=== PATIENT | male | born 1945 | race Caucasian/White ===

== ENCOUNTER → 2018-01-12 08:44 | Outpatient (CLI) | payer MEDICARE, OTHER, SELFPAY ==
--- NOTE | 2018-01-12 | DI.US.S_ITS ---
PROCEDURE: US ABD AORTA ANEURYSM SCREEN INDICATIONS: SCREENING TECHNIQUE: Real time scanning was performed of the aorta and iliac arteries, with image documentation. COMPARISON: [facility], CT, THORAX WITH CONTRAST, 07/18/2009, 11:17. FINDINGS: Aorta: Proximal aortic diameter measures 1.9 cm. Mid-aorta measures 1.9 cm. Distal aortic diameter is 1.5 cm. Iliac arteries: Right common iliac artery measures 1.0 cm. Left common iliac artery measures 1.0 cm. IMPRESSION: No abdominal aortic aneurysm. Dictated by: Bharath Silverio M.D. on 01/12/2018 at 10:10 Approved by: Bharath Silverio M.D. on 01/12/2018 at 10:12
== END ==
PROVIDERS: PCP Family Medicine; Visit Provider Family Medicine
DX: Z13.6 Encounter for screening for cardiovascular disorders (principal)
CPT/HCPCS: 76706

== ENCOUNTER 2018-01-27 13:57 | Outpatient (RCR) | payer MEDICARE, OTHER, SELFPAY ==
--- NOTE | 2018-01-30 14:56 | PT.OIE ---
Current Diagnoses Pain in left shoulder (01/27/18) Bicipital tendinitis, left shoulder (01/27/18) Provider Visit Care Team Role Provider Type Scotty Caceres MD Attending Provider Physician Primary Care Provider Specialty: [facility][1] Address: [place], [address] Email: [email or web address] Physical Therapy Initial Evaluation PT-OP-A Visit Information Start: 01/30/18 14:34 Freq: Status: Active Protocol: Document 01/27/18 14:30 DCW (Rec: 01/30/18 14:56 DCW [id number]) Out-Patient Physical Therapy Visit Information Visit Information Visit Type Initial Evaluation Visit Start Time 14:30 Visit Stop Time 15:10 Total Visit Minutes 40 Visit Number 1 Number of TRANSPORTATION OFFICER Visits 0 Evaluation Information Evaluation Date 01/27/18 PT-OP-B Current Condition Start: 01/30/18 14:34 Freq: Status: Active Protocol: Document 01/27/18 14:30 DCW (Rec: 01/30/18 14:56 DCW [id number]) Current Condition History of Current Condition Onset Date s/p 3 weeks Current Complaints Anterior shoulder pain History of Current Condition Pt is a 72 year old male presenting with a three week history of left shoulder pain. Pt reports that when it began , he saw his PCP, was diagnosed with Bicipital Tendonitis, and has been taking Meloxicam and babying it, which has helped it improve substantially from his initial pain. Pt does note some continued mild tenderness at the site of his bicipital groove, and has already been performing cross-friction massage and gentle shoulder strengthening. When his pain initially began, he was experiencing tingling into his upper arm when sleeping on his left side, which had never occurred previously, however that has also been happening much less frequently. Treatment Goals Patient/Caregiver Goals I want it to keep getting better. Prior Functional Status Baseline Function- ADL's Independent Baseline Function- Mobility Independent Current Functional Impairments (Reported) Functional Limitations- ADL's No current restrictions PT-OP-C Subjective Start: 01/30/18 14:34 Freq: Status: Active Protocol: Document 01/27/18 14:30 DCW (Rec: 01/30/18 14:56 DCW [id number]) Patient Questionnaires Quick Dash- Upper Extremity Quick Dash UE Score 9.09% Quick Dash UE Impairment 1 to 19% Impaired (Score 1-19) OP-PT Pain Assessment Pain Assessment Grid Paper Pain Assessment Grid Completed Yes Location Left Upper Arm Intensity 3 Scale Used Numeric (1 - 10) PT-OP-E Functional Tests Start: 01/30/18 14:34 Freq: Status: Active Protocol: Document 01/27/18 14:30 DCW (Rec: 01/30/18 14:56 [id number] Functional Tests Apley's Scratch Test Action 1: The subject is instructed to touch the opposite shoulder with his/her hand. This motion checks Glenohumeral adduction, internal rotation , horizontal adduction and scapular protraction Action 2: The subject is instructed to place his/her arm overhead and reach behind the neck to touch his/her upper back. This motion checks Glenohumeral abduction, external rotation and scapular upward rotation and elevation. Action 3: The subject puts his/her hand on the lower back and reaches upward as far as possible. This motion checks glenohumeral adduction, internal rotation and scapular retraction with downward rotation Action 1- Left WNL Action 1- Right WNL Action 2- Left WNL Action 2- Right WNL Action 3- Left WNL Action 3- Right WNL PT-OP-K Range of Motion Start: 01/30/18 14:34 Freq: Status: Active Protocol: Document 01/27/18 14:30 DCW (Rec: 01/30/18 14:56 [facility] [id number]) Shoulder Goniometric Range of Motion Shoulder Measured in Degrees Right Shoulder ROM WFL Yes Left Shoulder ROM WFL Yes Elbow/Forearm Range of Motion Elbow/Forearm Measured in Degrees Right Elbow/Forearm ROM WFL Yes Left Elbow/Forearm ROM WFL Yes PT-OP-L Special Tests Start: 01/30/18 14:34 Freq: Status: Active Protocol: Document 01/27/18 14:30 DCW (Rec: 01/30/18 14:56 [facility] [id number]) Special Tests Shoulder Special Tests Yergason's Biceps Test Results Positive - pain at bicipital groove Speed's Biceps Test Results Negative Passive ER Rotator Cuff Test Results Negative Lift-Off Rotator Cuff Test Results Negative Empty Can Test Results Negative Biceps Load II Test Test Results Mild c/o pain Drop Arm Rotator Cuff Test Results Negative Belly Press Test Results Negative PT-OP-M Strength Start: 01/30/18 14:34 Freq: Status: Active Protocol: Document 01/27/18 14:30 DCW (Rec: 01/30/18 14:56 DCW [id number]) Shoulder Strength Shoulder Manual Muscle Testing Right Reason Not Measured WFL Left Flexion 4+ Good+ Extension 5 Normal Abduction (C5) 5 Normal Adduction 5 Normal External Rotation 5 Normal Internal Rotation 5 Normal Elbow/Forearm Strength Elbow and Forearm Manual Muscle Testing Right Reason Not Measured WFL Left Flexion (C6) 4+ Good+ Extension (C7) 5 Normal PT-OP-T Assessment and Plan Start: 01/30/18 14:34 Freq: Status: Active Protocol: Document 01/27/18 14:30 DCW (Rec: 01/30/18 14:56 DCW [id number]) Physical Therapy Assessment Rehab Potential Rehabilitation Potential Excellent Evaluation Complexity Number of Personal Factors/Comorbidities 0 Number of Body Systems Impaired 1-2 Clinical Presentation at Evaluation Stable Impairments Impairments Pain Strength Goals Two Impairment Special Tests Short Term Goal (STG) Yergason's Test/Biceps Load Test - testing to be negative One Impairment QuickDASH score Short Term Goal (STG) Pt to score a 0% on QuickDASH STG Duration 02/17/18 Assessment Summary Assessment Pt presents with signs and symptoms of Bicipital Tendonitis. Pt is already doing very well, is performing appropriate home exercises and STM, and currently has no real need for further skilled PT. Pt has no functional deficits, and has made great improvement on his own. Pt should be scheduled for a follow-up visit in two week for advancement of HEP in case he has plateaued in his progress, however if he continues to be improving, pt was instructed to cancel his appointment, and will be discharged from therapy at that time. Physical Therapy Plan Frequency and Duration Frequency of Treatment 1x/Week Duration of Treatment 6 weeks Plan of Care Start Date 01/27/18 Plan of Care End Date 03/10/18 Therapeutic Interventions Therapeutic Interventions Home Exercise Program Joint Mobilizations Manual Therapy Self-Care/Home Management Soft Tissue Mobilization Taping Therapeutic Exercises Modalities Iontophoresis Ultrasound Next Visit Focus/Plan Next Note Type Treatment Note Next Visit Plan Iontophoresis /c Dexamethasone , Ultrasound, continued cross- friction massage and gentle strengthening.
--- NOTE | 2018-01-30 14:57 | PT.OPPOC ---
Current Diagnoses Pain in left shoulder (01/27/18) Bicipital tendinitis, left shoulder (01/27/18) Provider Visit Care Team Role Provider Type Scotty Caceres MD Attending Provider Physician Primary Care Provider Specialty: Family Practice Address: [place], [address] Email: [email or web address] Plan Of Care PT-OP-T Assessment and Plan Start: 01/30/18 14:34 Freq: Status: Active Protocol: Document 01/27/18 14:30 DCW (Rec: 01/30/18 14:56 DCW [id number]) Physical Therapy Assessment Rehab Potential Rehabilitation Potential Excellent Evaluation Complexity Number of Personal Factors/Comorbidities 0 Number of Body Systems Impaired 1-2 Clinical Presentation at Evaluation Stable Impairments Impairments Pain Strength Goals Two Impairment Special Tests Short Term Goal (STG) Yergason's Test/Biceps Load Test - testing to be negative One Impairment QuickDASH score Short Term Goal (STG) Pt to score a 0% on QuickDASH STG Duration 02/17/18 Assessment Summary Assessment Pt presents with signs and symptoms of Bicipital Tendonitis. Pt is already doing very well, is performing appropriate home exercises and STM, and currently has no real need for further skilled PT. Pt has no functional deficits, and has made great improvement on his own. Pt should be scheduled for a follow-up visit in two week for advancement of HEP in case he has plateaued in his progress, however if he continues to be improving, pt was instructed to cancel his appointment, and will be discharged from therapy at that time. Physical Therapy Plan Frequency and Duration Frequency of Treatment 1x/Week Duration of Treatment 6 weeks Plan of Care Start Date 01/27/18 Plan of Care End Date 03/10/18 Therapeutic Interventions Therapeutic Interventions Home Exercise Program Joint Mobilizations Manual Therapy Self-Care/Home Management Soft Tissue Mobilization Taping Therapeutic Exercises Modalities Iontophoresis Ultrasound Next Visit Focus/Plan Next Note Type Treatment Note Next Visit Plan Iontophoresis /c Dexamethasone , Ultrasound, continued cross- friction massage and gentle strengthening. Plan of Care Dates Plan of Care Start Date 01/27/18 Plan of Care End Date 03/10/18 Please Sign and Return: I have reviewed this Plan of Care and certify that the skilled therapy services above are required to meet the patient?s needs. Physician Signature Date Printed Name and Credentials Clinical Instructor Signature Printed Name and Credentials
--- NOTE | 2018-03-14 10:16 | PT.OPDS ---
Current Diagnoses Pain in left shoulder (01/27/18) Bicipital tendinitis, right shoulder (01/27/18) Bicipital tendinitis, left shoulder (01/27/18) Provider Visit Care Team Role Provider Type Scotty Caceres MD Attending Provider Physician Primary Care Provider Specialty: Family Practice Address: [facility] [place], [address] Email: [email or web address] Visit Number Visit Number 1 Discharge Summary PT-OP-B Current Condition Start: 01/30/18 14:34 Freq: Status: Active Protocol: Document 01/27/18 14:30 DCW (Rec: 01/30/18 14:56 DCW [id number]) Current Condition History of Current Condition Onset Date s/p 3 weeks Current Complaints Anterior shoulder pain History of Current Condition Pt is a 72 year old male presenting with a three week history of left shoulder pain. Pt reports that when it began , he saw his PCP, was diagnosed with Bicipital Tendonitis, and has been taking Meloxicam and babying it, which has helped it improve substantially from his initial pain. Pt does note some continued mild tenderness at the site of his bicipital groove, and has already been performing cross-friction massage and gentle shoulder strengthening. When his pain initially began, he was experiencing tingling into his upper arm when sleeping on his left side, which hadnever occurred previously, however that has also been happening much less frequently. Treatment Goals Patient/Caregiver Goals I want it to keep getting better. Prior Functional Status Baseline Function- ADL's Independent Baseline Function- Mobility Independent Current Functional Impairments (Reported) Functional Limitations- ADL's No current restrictions PT-OP-C Subjective Start: 01/30/18 14:34 Freq: Status: Active Protocol: Document 01/27/18 14:30 DCW (Rec: 01/30/18 14:56 DCW [id number]) Patient Questionnaires Quick Dash- Upper Extremity Quick Dash UE Score 9.09% Quick Dash UE Impairment 1 to 19% Impaired (Score 1-19) OP-PT Pain Assessment Pain Assessment Grid Paper Pain Assessment Grid Completed Yes Location Left Upper Arm Intensity 3 Scale Used Numeric (1 - 10) PT-OP-E Functional Tests Start: 01/30/18 14:34 Freq: Status: Active Protocol: Document 01/27/18 14:30 DCW (Rec: 01/30/18 14:56 [id number] Functional Tests Apley's Scratch Test Action 1: The subject is instructed to touch the opposite shoulder with his/her hand. This motion checks Glenohumeral adduction, internal rotation , horizontal adduction and scapular protraction Action 2: The subject is instructed to place his/her arm overhead and reach behind the neck to touch his/her upper back. This motion checks Glenohumeral abduction, external rotation and scapular upward rotation and elevation. Action 3: The subject puts his/her hand on the lower back and reaches upward as far as possible. This motion checks glenohumeral adduction, internal rotation and scapular retraction with downward rotation Action 1- Left WNL Action 1- Right WNL Action 2- Left WNL Action 2- Right WNL Action 3- Left WNL Action 3- Right WNL PT-OP-K Range of Motion Start: 01/30/18 14:34 Freq: Status: Active Protocol: Document 01/27/18 14:30 DCW (Rec: 01/30/18 14:56 [id number] Shoulder Goniometric Range of Motion Shoulder Measured in Degrees Right Shoulder ROM WFL Yes Left Shoulder ROM WFL Yes Elbow/Forearm Range of Motion Elbow/Forearm Measured in Degrees Right Elbow/Forearm ROM WFL Yes Left Elbow/Forearm ROM WFL Yes PT-OP-L Special Tests Start: 01/30/18 14:34 Freq: Status: Active Protocol: Document 01/27/18 14:30 DCW (Rec: 01/30/18 14:56 [id number] Special Tests Shoulder Special Tests Yergason's Biceps Test Results Positive - pain at bicipital groove Speed's Biceps Test Results Negative Passive ER Rotator Cuff Test Results Negative Lift-Off Rotator Cuff Test Results Negative Empty Can Test Results Negative Biceps Load II Test Test Results Mild c/o pain Drop Arm Rotator Cuff Test Results Negative Belly Press Test Results Negative PT-OP-M Strength Start: 01/30/18 14:34 Freq: Status: Active Protocol: Document 01/27/18 14:30 DCW (Rec: 01/30/18 14:56 [id number]) Shoulder Strength Shoulder Manual Muscle Testing Right Reason Not Measured WFL Left Flexion 4+ Good+ Extension 5 Normal Abduction (C5) 5 Normal Adduction 5 Normal External Rotation 5 Normal Internal Rotation 5 Normal Elbow/Forearm Strength Elbow and Forearm Manual Muscle Testing Right Reason Not Measured WFL Left Flexion (C6) 4+ Good+ Extension (C7) 5 Normal PT-OP-T Assessment and Plan Start: 01/30/18 14:34 Freq: Status: Active Protocol: Document 03/14/18 10:13 [facility] (Rec: 03/14/18 10:16 [facility] [id number]) Physical Therapy Assessment Goals Two Impairment Special Tests Short Term Goal (STG) Yergason's Test/Biceps Load Test - testing to be negative One Impairment QuickDASH score Short Term Goal (STG) Pt to score a 0% on QuickDASH STG Duration 02/17/18 Physical Therapy Plan Discharge Physical Therapy Discharge Reasons No Longer Attending PT Discharge Comments At the time of pt's initial evaluation, he was already doing very well, and nearing baseline. Therapist and patient decided pt should schedule a two-week follow-up appointment, and cancel if he felt he no longer needed it. Pt canceled that appointment, and has not scheduled any further visits. Pt will be discharged from skilled therapy at this time.
== END 2018-01-28 11:13 ==
LOC: PHYS 13:57
PROVIDERS: PCP Family Medicine; Visit Provider Family Medicine
DX: M75.22 Bicipital tendinitis, left shoulder (principal); M75.21 Bicipital tendinitis, right shoulder; M25.512 Pain in left shoulder
CPT/HCPCS: 97161

== ENCOUNTER → 2018-03-14 09:26 | Outpatient (CLI) | payer MEDICARE, OTHER, SELFPAY | PROVIDERS: Family Provider Family Medicine; PCP Family Medicine; Visit Provider Specialist | DX: N40.1 Benign prostatic hyperplasia with lower urinary tract symptoms (principal) | CPT/HCPCS: 36415; 84153 ==

== ENCOUNTER 2018-04-06 08:24 | Emergency (ER) | payer MEDICARE, OTHER, SELFPAY ==
[2018-04-06] VITALS (8 sets, daily range): BP systolic 107–166; BP diastolic 58–85; PULSE 50–93; RESP 12–19; TEMP 36.4; O2SAT 96–100
--- NOTE | 2018-04-06 08:30 | DI.RAD.S_ITS ---
PROCEDURE: XR CHEST 1V INDICATIONS: chest pain TECHNIQUE: One view of the chest was acquired. COMPARISON: [facility], CT, THORAX WITH CONTRAST, 07/18/2009, 11:17. [facility], CR, CHEST 1 VIEW, 03/09/2017, 15:34. FINDINGS: Surgical changes and devices: None. Lungs and pleura: No pleural effusions or pneumothorax. Lungs are clear. Mediastinum: Mediastinal contours appear normal. Heart size is normal. Hiatal hernia as before although appears slightly increased in size. Bones and chest wall: No suspicious bony lesions. Overlying soft tissues appear unremarkable. IMPRESSION: Slight increase in size of hiatal hernia. No acute consolidation. Dictated by: Sincere Dc M.D. on 04/06/2018 at 9:41 Approved by: Sincere Dc M.D. on 04/06/2018 at 9:46
--- NOTE | 2018-04-06 08:32 | ED.CHESTPAIN ---
HPI - Chest Pain General Chief Complaint: Chest Pain Stated Complaint: chest pains after gym Time Seen by Provider: 04/06/18 08:27 Source: patient and family Mode of arrival: ambulatory Limitations: no limitations History of Present Illness HPI narrative: 72-year-old male, nonsmoker presents with his for evaluation of chest pain that started about 1 hr ago. He has known cardiac disease and had a mid LAD stent placed about 1 year ago and [facility]. He has had no provocative testing since. He was at the gym this morning and doing leg exercises when he had sudden onset of heavy chest pressure which he rated a 4/10 that radiated into his back and left arm. He denies associated symptoms such as diaphoresis, shortness of breath nor nausea or vomiting. He went home and took a cool shower and had ongoing discomfort in his shoulder and arm and decided to come in with his . On arrival he still has 3/10 and just prior to administration of meds is down to a 1/10. He denies any recent travel or injuries. MD complaint: chest pain Onset (ago): hour(s) Duration: constant Onset: during exertion Pain location: substernal and left chest Severity: moderate Severity scale (1-10): 4 Quality: tightness and heaviness Pain radiation: LUE Relieving factors: nitroglycerin and rest Exacerbating factors: exertion Context: recent illness Treatments prior to arrival chest pain: none Related Data Home Medications Medication Instructions Recorded Confirmed tamsulosin [Flomax] 0.4 mg PO BID #0 03/04/17 04/06/18 aspirin 1 tab PO QPM #0 03/09/17 04/06/18 Vision Formula 50+ 1 tab PO QPM 04/06/18 04/06/18 atorvastatin 1 tab PO DAILY 04/06/18 04/06/18 cholecalciferol (vitamin D3) 1 cap PO DAILY 04/06/18 04/06/18 [Vitamin D3] coQ10 (ubiquinol) 1 cap PO QAM 04/06/18 04/06/18 magnesium 250 mg PO DAILY 04/06/18 04/06/18 multivitamin 1 tab PO DAILY 04/06/18 04/06/18 pantoprazole 1 tab PO DAILY 04/06/18 04/06/18 Previous Rx's Medication Instructions Recorded isosorbide mononitrate 10 mg PO BID #30 tab 04/06/18 nitroglycerin 0.4 mg SL Q5-15M PRN #30 tab 04/06/18 Allergies Allergy/AdvReac Type Severity Reaction Status Date / Time etodolac [From [facility]] Allergy Mild PER Unverified 09/14/17 11:45 DREW. Penicillins [PENICILLINS] Allergy Mild RASH Unverified 09/14/17 11:45 Review of Systems Review of Systems All systems reviewed & are unremarkable except as noted in HPI and below Constitutional Denies chills, Denies fever(s), Denies lethargy and Denies weakness Eyes Denies change in vision, Denies eye discharge, Denies irritation and Denies loss of vision ENT Ears, Nose, Mouth, and Throat: Denies change in voice, Denies neck pain and Denies sore throat Cardiovascular Reports chest pain, Denies irregular heart rhythm, Denies lightheadedness, Denies palpitations, Denies dyspnea, Denies dyspnea on exertion and Denies orthopnea Respiratory Denies cough, Denies dyspnea, Denies dyspnea on exertion and Denies wheezing Gastrointestinal Gastrointestinal: Denies abdominal pain, Denies change in bowel habits, Denies diarrhea, Denies nausea and Denies vomiting Genitourinary Denies hematuria, Denies flank pain, Denies urinary incontinence and Denies urinary urgency Musculoskeletal Denies neck pain Integumentary/Breasts Denies pruritus, Denies erythema, Denies rash and Denies wounds Neurologic Denies confusion, Denies loss of vision and Denies weakness Psychiatric Denies anxiety, Denies confusion, Denies depression, Denies homicidal ideation and Denies suicidal ideation Endocrine Denies palpitations Hematologic/Lymphatic Denies easy bruising Allergic/Immunologic Denies wheezing PFSH Surgical History Hx of heart artery stent (Acute) Social History Smoking Status: Never smoker Exam Narrative Exam Narrative: 72M resting comfortably, no obvious stress Initial Vital Signs Initial Vital Signs: Vital Signs Temperature 97.6 F 04/06/18 08:25 Pulse Rate 93 H 04/06/18 08:25 Respiratory Rate 12 04/06/18 08:25 Blood Pressure 166/85 H 04/06/18 08:25 Pulse Oximetry 100 04/06/18 08:25 Const General: cooperative and well developed Nutritional Appearance: well nourished Orientation: alert, awake, oriented x3 and not confused HENTX Head: normocephalic and atraumatic Ears: external ears normal and TM's normal bilaterally Nose: external nose normal and No nasal discharge Face and sinus: sinuses nontender, face symmetric, no sinus tenderness and No dry mucous membranes Mouth: oral mucosae normal and moist mucous membranes Teeth and gingiva: dentition normal Throat: tonsils normal and uvula midline Neck Neck: normal visual inspection, trachea midline, No lymphadenopathy, No midline deformity and No JVD Lymphatic: No lymphedema Chest Chest: normal inspection of the chest Cardio Rate: regular rate Rhythm: regular rhythm Heart Sounds: no click, no gallops, no murmurs and no rubs Pulses: normal peripheral pulses Back/Spine/Pelvis Back: No CVA tenderness Cervical Spine: cervical ROM normal and No pain with cervical ROM Thoracic/Lumbar Spine: thoracic and lumbar spine normal to inspection Neuro General: alert, oriented x3, gait normal and no focal motor deficits Speech: speech normal Psych Appearance: well kempt Mental Status: mental status grossly normal Attitude: cooperative Thought Content: normal and suicidality Judgment: judgment good Course Orders Ordered: ED Orders 04/06/18 08:30 XR chest 1V Stat EKG-12 Lead Stat 04/06/18 08:45 Complete Blood Count AUTO DIFF Stat Comprehensive Metabolic Panel Stat Lipase Stat Troponin & CK Cardiac Panel Stat 04/06/18 09:02 EKG-12 Lead Stat 04/06/18 10:15 CT angio chest abdomen Stat Discontinued Medications Aspirin (Aspirin Chew) 324 mg PO NOW ONE Stop: 04/06/18 08:30 Last Admin: 04/06/18 08:41 Dose: 324 mg Sodium Chloride (Normal Saline 0.9%) 1,000 mls @ 150 mls/hr IV CONT [facility] Last Infusion: 04/06/18 11:20 Dose: 0 mls/hr Admin: 04/06/18 08:58 Dose: 150 mls/hr Metoprolol Tartrate (Lopressor) 5 mg IV Q5M SLY Stop: 04/06/18 09:26 Last Admin: 04/06/18 09:47 Dose: 5 mg Admin: 04/06/18 09:38 Dose: 5 mg Admin: 04/06/18 09:31 Dose: 5 mg Nitroglycerin (Nitrostat) 0.4 mg SL [id number] PRN PRN Reason: Chest Pain Last Admin: 04/06/18 08:42 Dose: 0.4 mg Consultations Consultation #1: called for records at [facility] Time: 08:47 Consultation #2: I've spoken with [facility] cardiology database reporting consultant, Dr. Patel whom is happy for patient to go home with nitro and imdur Rx and close follow up Vital Signs - 8 hr 04/06/18 08:25 04/06/18 08:42 04/06/18 09:20 Temperature 97.6 F Pulse Rate 93 H 84 82 Respiratory Rate 12 14 Blood Pressure 166/85 H 166/85 H Blood Pressure [Left Arm] 160/67 H Pulse Oximetry 100 96 04/06/18 09:30 04/06/18 09:43 04/06/18 09:51 Temperature Pulse Rate 61 52 L 50 L Respiratory Rate 18 18 18 Blood Pressure Blood Pressure [Left Arm] 116/64 109/59 L 107/58 L Pulse Oximetry 96 96 100 04/06/18 11:12 04/06/18 11:21 Temperature Pulse Rate 56 L 57 L Respiratory Rate 13 19 Blood Pressure 109/62 Blood Pressure [Left Arm] 109/62 Pulse Oximetry 98 99 MDM - Chest Pain Differential Diagnosis Likely stable angina, unstable angina pectoris, atypical chest pain, st elevation myocardial infarction, costochondritis, chest pain and biliary colic Medical Records Data Attestation: I reviewed the patient's medical records. Lab Data Attestation: I reviewed the patient's lab results. Result diagrams: 04/06/18 08:45 04/06/18 08:45 Lab Results 04/06/18 04/06/18 Range/Units 08:45 08:45 WBC 7.1 (4.5-11.0) X10^3/uL RBC 5.08 (4.5-5.9) X10^6/uL Hgb 14.7 (13.5-17.5) g/dL Hct 44.0 (41-53) % MCV 86.6 (80-100) fL MCH 28.9 (26-34) PG MCHC 33.4 (30-36) % RDW 13.4 (11.6-14.8) % Plt Count 265 (150-400) X10^3/uL Neut % (Auto) 63.5 (50-75) % Lymph % (Auto) 24.1 L (25-40) % [place] % (Auto) 9.2 (3-14) % Eos % (Auto) 2.0 (2-4) % Baso % (Auto) 1.2 (0-2) % Neut # (Auto) 4500 (2091-2093) /uL Sodium 141 (137-145) mmol/L Potassium 4.0 (3.4-5.1) mmol/L Chloride 103 (98-107) mmol/L Carbon Dioxide 26 (22-32) mmol/L BUN 15 (9-20) mg/dL Creatinine 0.80 (0.66-1.25) mg/dL Estimated GFR > 60.0 (>60) mL/min BUN/Creatinine Ratio 18.8 (6-22) Glucose 100 (80-110) mg/dL Calcium 9.5 (8.4-10.2) mg/dL Total Bilirubin 0.7 (0.2-1.3) mg/dL AST 29 (17-59) IU/L ALT 32 (21-72) IU/L Alkaline Phosphatase 46 (38-126) U/L Total Creatine Kinase 87 (55-170) U/L CK-MB (CK-2) TNP CK-MB (CK-2) Rel Index TNP Troponin I < 0.012 (0.01-0.034) ng/mL Total Protein 7.8 (6.3-8.2) g/dL Albumin 4.6 (3.5-5.0) g/dL Globulin 3.2 (1.7-4.1) g/dL Albumin/Globulin Ratio 1.4 (1.0-2.8) Lipase 76 (23-300) U/L Urine Dip Bedside Urine Glucose Negative Bedside Urine Bilirubin - Negative Bedside Urine Ketone - Negative Urine Specific [place] 1.020 Bedside Urine Occult Blood - Negative Bedside Urine pH 6.5 Bedside Urine Protein - Negative Bedside Urine Urobilinogen - Negative Bedside Urine Nitrite - Negative Bedside Urine Leukocytes - Negative Esterase Imaging Data CT scan - chest: Radiologist's impression: [address] [address] [address] Scan Report Signed Patient: Bert Posada WMR#: [id number] : [id number]:[id number] Age/Sex: 72 / MDate of Service: 04/06/18 Loc: ED Accession Number: [id number] Procedure: CT angio chest abdomen Ordering Provider: Sundar Franks D.O. PROCEDURE: CT ANGIO CHEST ABDOMEN INDICATIONS: Upper chest pain TECHNIQUE: Precontrast 5 mm thick sections acquired from the lung apices to the iliac crests. After the administration of intravenous contrast, 2.5 mm thick sections again acquired from the lung apices to the iliac crests. 10 mm maximum intensity projection (MIP) oblique sagittal and coronal reformats were then acquired. For radiation dose reduction, the following was used: automated exposure control. COMPARISON: [facility], CT, THORAX WITH CONTRAST, 07/18/2009, 11:17. [facility], CR, CHEST 1 VIEW, 03/09/2017, 15:34. FINDINGS: Image quality: Excellent. AORTA: No aneuysmal dilation, occlusion or stenosis. CHEST: Lungs and pleura: No acute airspace opacities. No pleural effusions or pneumothorax. Central and peripheral airways are patent and normal in caliber. Mediastinum: Heart size is normal. No pericardial effusion. No mediastinal or hilar adenopathy by size criteria. Central pulmonary arteries are normal in size. Esophagus is normal in caliber. Large hiatal hernia. Bones and chest wall: No axillary adenopathy by size criteria. Thyroid gland demonstrate bilaterally low attenuation foci, most prominent on the right, measuring 20 mm AP x 12 mm transverse, new compared to prior exam. No suspicious bony lesions. No vertebral body compression fractures. ABDOMEN: Vasculature: Celiac trunk and mesenteric arteries are patent. Renal arteries are also patent. Solid organs: Liver is normal in size and enhancement. Gallbladder is unremarkable. Biliary system is non dilated. Pancreas enhances normally. Spleen is normal in size and enhancement. No adrenal nodules. Both kidneys are normal in size and enhancement, without hydronephrosis. Peritoneum and bowel: No free fluid or air. Bowel loops are normal in caliber and wall thickness. Nodes and vessels: No retroperitoneal or mesenteric adenopathy by size criteria. Inferior vena cava is normal in morphology. Bones: No suspicious bony lesions. No vertebral body compression fractures. Miscellaneous: No ventral hernias. IMPRESSION: 1. No aortic dissection or aneurysmal dilation. 2. Large hiatal hernia. 3. Low attenuation thyroid foci, new compared to prior exam. Thyroid ultrasound is recommended for further evaluation. Dictated by: Chantale Millan M.D. on 04/06/2018 at 10:25 Approved by: Chantale Millan M.D. on 04/06/2018 at 10:34 ECG Data Attestation: I personally reviewed and interpreted this ECG as follows: Prior ECG tracings: not available for review Interpretation: EKG is normal sinus rhythm and free of any signs of ischemia or ectopy. EKG 2. Unchanged MDM Narrative Medical decision making narrative: 72-year-old male with known cardiac disease presents with chest pain with exertion that resolved with rest. EKG and labs are unremarkable. His cardiology group is happy to see him in follow up with some medication adjustments. He and have had questions answered to their apparent satisfaction and have verbalized understanding, including return precautions Discharge Plan Departure Patient Disposition: Home Clinical Impression: Chest pain Discharge Date/Time: 04/06/18 11:21 Interventions: ED Discharge Assessment Last Done: 04/06/18 11:21 Instructions: DI for Chest Pain Activity Restrictions/Additional Instructions: *You have been diagnosed with [ chest pain ] *What to do: *Take medications as directed: Your prescriptions have been electronically transmitted to [facility] at your request *Follow up with your forensic locksmith in 2-3 days, call for an appointment. Let them know you were seen in the Emergency Department and that we ask that you be seen in follow up *Return to ER if you should have any new, worsening or concerning symptoms Prescriptions: New nitroglycerin 0.4 mg tablet, sublingual 0.4 mg SL Q5-15M PRN (Reason: chest pain) Qty: 30 RF: 0 isosorbide mononitrate 10 mg tablet 10 mg PO BID Qty: 30 RF: 0 No Action tamsulosin [Flomax] 0.4 MG capsule,extended release 24hr 0.4 mg PO BID Qty: 0 RF: 0 aspirin 81 MG tablet,delayed release (DR/EC) 1 tab PO QPM Qty: 0 RF: 0 multivitamin Tablet 1 tab PO DAILY RF: 0 coQ10 (ubiquinol) 100 mg Capsule 1 cap PO QAM RF: 0 magnesium 250 mg Tablet 250 mg PO DAILY RF: 0 cholecalciferol (vitamin D3) [Vitamin D3] 2,000 unit Capsule 1 cap PO DAILY RF: 0 atorvastatin 40 mg tablet 1 tab PO DAILY RF: 0 pantoprazole 40 mg tablet,delayed release (DR/EC) 1 tab PO DAILY RF: 0 Vision Formula 50+ 1 tab PO QPM RF: 0
[2018-04-06] MEDS: ASPIRIN 81 MG TAB 324 MG PO (08:41)
[2018-04-06] MEDS: NITROGLYCERIN 0.4 MG SL TAB SL (08:42)
--- NOTE | 2018-04-06 08:48 | ED_ITS ---
HPI - Chest Pain General Chief Complaint: Chest Pain Stated Complaint: chest pains after gym Time Seen by Provider: 04/06/18 08:27 Source: patient and family Mode of arrival: ambulatory Limitations: no limitations History of Present Illness HPI narrative: 72-year-old male, nonsmoker presents with his for evaluation of chest pain that started about 1 hr ago. He has known cardiac disease and had a mid LAD stent placed about 1 year ago and [place]. He has had no provocative testing since. He was at the gym this morning and doing leg exercises when he had sudden onset of heavy chest pressure which he rated a 4/ 10 that radiated into his back and left arm. He denies associated symptoms such as diaphoresis, shortness of breath nor nausea or vomiting. He went home and took a cool shower and had ongoing discomfort in his shoulder and arm and decided to come in with his . On arrival he still has 3/10 and just prior to administration of meds is down to a 1/10. He denies any recent travel or injuries. MD complaint: chest pain Onset (ago): hour(s) Duration: constant Onset: during exertion Pain location: substernal and left chest Severity: moderate Severity scale (1-10): 4 Quality: tightness and heaviness Pain radiation: LUE Relieving factors: nitroglycerin and rest Exacerbating factors: exertion Context: recent illness Treatments prior to arrival chest pain: none Related Data Home Medications Medication Instructions Recorded Confirmed tamsulosin [Flomax] 0.4 mg PO BID #0 03/04/17 04/06/18 aspirin 1 tab PO QPM #0 03/09/17 04/06/18 Vision Formula 50+ 1 tab PO QPM 04/06/18 04/06/18 atorvastatin 1 tab PO DAILY 04/06/18 04/06/18 cholecalciferol (vitamin D3) 1 cap PO DAILY 04/06/18 04/06/18 [Vitamin D3] coQ10 (ubiquinol) 1 cap PO QAM 04/06/18 04/06/18 magnesium 250 mg PO DAILY 04/06/18 04/06/18 multivitamin 1 tab PO DAILY 04/06/18 04/06/18 pantoprazole 1 tab PO DAILY 04/06/18 04/06/18 Previous Rx's Medication Instructions Recorded isosorbide mononitrate 10 mg PO BID #30 tab 04/06/18 nitroglycerin 0.4 mg SL Q5-15M PRN #30 tab 04/06/18 Allergies Allergy/AdvReac Type Severity Reaction Status Date / Time etodolac [From [facility]] Allergy Mild PER Unverified 09/14/17 11:45 DREW. Penicillins [PENICILLINS] Allergy Mild RASH Unverified 09/14/17 11:45 Review of Systems Review of Systems All systems reviewed & are unremarkable except as noted in HPI and below Constitutional Denies chills, Denies fever(s), Denies lethargy and Denies weakness Eyes Denies change in vision, Denies eye discharge, Denies irritation and Denies loss of vision ENT Ears, Nose, Mouth, and Throat: Denies change in voice, Denies neck pain and Denies sore throat Cardiovascular Reports chest pain, Denies irregular heart rhythm, Denies lightheadedness, Denies palpitations, Denies dyspnea, Denies dyspnea on exertion and Denies orthopnea Respiratory Denies cough, Denies dyspnea, Denies dyspnea on exertion and Denies wheezing Gastrointestinal Gastrointestinal: Denies abdominal pain, Denies change in bowel habits, Denies diarrhea, Denies nausea and Denies vomiting Genitourinary Denies hematuria, Denies flank pain, Denies urinary incontinence and Denies urinary urgency Musculoskeletal Denies neck pain Integumentary/Breasts Denies pruritus, Denies erythema, Denies rash and Denies wounds Neurologic Denies confusion, Denies loss of vision and Denies weakness Psychiatric Denies anxiety, Denies confusion, Denies depression, Denies homicidal ideation and Denies suicidal ideation Endocrine Denies palpitations Hematologic/Lymphatic Denies easy bruising Allergic/Immunologic Denies wheezing PFSH Surgical History Hx of heart artery stent (Acute) Social History Smoking Status: Never smoker Exam Narrative Exam Narrative: 72M resting comfortably, no obvious stress Initial Vital Signs Initial Vital Signs: Vital Signs Temperature 97.6 F 04/06/18 08:25 Pulse Rate 93 H 04/06/18 08:25 Respiratory Rate 12 04/06/18 08:25 Blood Pressure 166/85 H 04/06/18 08:25 Pulse Oximetry 100 04/06/18 08:25 Const General: cooperative and well developed Nutritional Appearance: well nourished Orientation: alert, awake, oriented x3 and not confused HENTX Head: normocephalic and atraumatic Ears: external ears normal and TM's normal bilaterally Nose: external nose normal and No nasal discharge Face and sinus: sinuses nontender, face symmetric, no sinus tenderness and No dry mucous membranes Mouth: oral mucosae normal and moist mucous membranes Teeth and gingiva: dentition normal Throat: tonsils normal and uvula midline Neck Neck: normal visual inspection, trachea midline, No lymphadenopathy, No midline deformity and No JVD Lymphatic: No lymphedema Chest Chest: normal inspection of the chest Cardio Rate: regular rate Rhythm: regular rhythm Heart Sounds: no click, no gallops, no murmurs and no rubs Pulses: normal peripheral pulses Back/Spine/Pelvis Back: No CVA tenderness Cervical Spine: cervical ROM normal and No pain with cervical ROM Thoracic/Lumbar Spine: thoracic and lumbar spine normal to inspection Neuro General: alert, oriented x3, gait normal and no focal motor deficits Speech: speech normal Psych Appearance: well kempt Mental Status: mental status grossly normal Attitude: cooperative Thought Content: normal and suicidality Judgment: judgment good Course Orders Ordered: ED Orders 04/06/18 08:30 XR chest 1V Stat EKG-12 Lead Stat 04/06/18 08:45 Complete Blood Count AUTO DIFF Stat Comprehensive Metabolic Panel Stat Lipase Stat Troponin & CK Cardiac Panel Stat 04/06/18 09:02 EKG-12 Lead Stat 04/06/18 10:15 CT angio chest abdomen Stat Discontinued Medications Aspirin (Aspirin Chew) 324 mg PO NOW ONE Stop: 04/06/18 08:30 Last Admin: 04/06/18 08:41 Dose: 324 mg Sodium Chloride (Normal Saline 0.9%) 1,000 mls @ 150 mls/hr IV [facility] Last Infusion: 04/06/18 11:20 Dose: 0 mls/hr Admin: 04/06/18 08:58 Dose: 150 mls/hr Metoprolol Tartrate (Lopressor) 5 mg IV Q5M SLY Stop: 04/06/18 09:26 Last Admin: 04/06/18 09:47 Dose: 5 mg Admin: 04/06/18 09:38 Dose: 5 mg Admin: 04/06/18 09:31 Dose: 5 mg Nitroglycerin (Nitrostat) 0.4 mg SL [id number] PRN PRN Reason: Chest Pain Last Admin: 04/06/18 08:42 Dose: 0.4 mg Consultations Consultation #1: called for records at [facility] Time: 08:47 Consultation #2: I've spoken with [facility] cardiology transportation solutions manager, Dr. Patel whom is happy for patient to go home with nitro and imdur Rx and close follow up Vital Signs - 8 hr 04/06/18 08:25 04/06/18 08:42 04/06/18 09:20 Temperature 97.6 F Pulse Rate 93 H 84 82 Respiratory Rate 12 14 Blood Pressure 166/85 H 166/85 H Blood Pressure [Left Arm] 160/67 H Pulse Oximetry 100 96 04/06/18 09:30 04/06/18 09:43 04/06/18 09:51 Temperature Pulse Rate 61 52 L 50 L Respiratory Rate 18 18 18 Blood Pressure Blood Pressure [Left Arm] 116/64 109/59 L 107/58 L Pulse Oximetry 96 96 100 04/06/18 11:12 04/06/18 11:21 Temperature Pulse Rate 56 L 57 L Respiratory Rate 13 19 Blood Pressure 109/62 Blood Pressure [Left Arm] 109/62 Pulse Oximetry 98 99 MDM - Chest Pain Differential Diagnosis Likely stable angina, unstable angina pectoris, atypical chest pain, st elevation myocardial infarction, costochondritis, chest pain and biliary colic Medical Records Data Attestation: I reviewed the patient's medical records. Lab Data Attestation: I reviewed the patient's lab results. Result diagrams: 04/06/18 08:45 04/06/18 08:45 Lab Results 04/06/18 04/06/18 Range/Units 08:45 08:45 WBC 7.1 (4.5-11.0) X10^3/uL RBC 5.08 (4.5-5.9) X10^6/uL Hgb 14.7 (13.5-17.5) g/dL Hct 44.0 (41-53) % MCV 86.6 (80-100) fL MCH 28.9 (26-34) PG MCHC 33.4 (30-36) % RDW 13.4 (11.6-14.8) % Plt Count 265 (150-400) X10^3/uL Neut % (Auto) 63.5 (50-75) % Lymph % (Auto) 24.1 L (25-40) % [place] % (Auto) 9.2 (3-14) % Eos % (Auto) 2.0 (2-4) % Baso % (Auto) 1.2 (0-2) % Neut # (Auto) 4500 (0610-7672) /uL Sodium 141 (137-145) mmol/L Potassium 4.0 (3.4-5.1) mmol/L Chloride 103 (98-107) mmol/L Carbon Dioxide 26 (22-32) mmol/L BUN 15 (9-20) mg/dL Creatinine 0.80 (0.66-1.25) mg/dL Estimated GFR > 60.0 (>60) mL/min BUN/Creatinine Ratio 18.8 (6-22) Glucose 100 (80-110) mg/dL Calcium 9.5 (8.4-10.2) mg/dL Total Bilirubin 0.7 (0.2-1.3) mg/dL AST 29 (17-59) IU/L ALT 32 (21-72) IU/L Alkaline Phosphatase 46 (38-126) U/L Total Creatine Kinase 87 (55-170) U/L CK-MB (CK-2) TNP CK-MB (CK-2) Rel Index TNP Troponin I < 0.012 (0.01-0.034) ng/mL Total Protein 7.8 (6.3-8.2) g/dL Albumin 4.6 (3.5-5.0) g/dL Globulin 3.2 (1.7-4.1) g/dL Albumin/Globulin Ratio 1.4 (1.0-2.8) Lipase 76 (23-300) U/L Urine Dip Bedside Urine Glucose Negative Bedside Urine Bilirubin - Negative Bedside Urine Ketone - Negative Urine Specific [place] 1.020 Bedside Urine Occult Blood - Negative Bedside Urine pH 6.5 Bedside Urine Protein - Negative Bedside Urine Urobilinogen - Negative Bedside Urine Nitrite - Negative Bedside Urine Leukocytes - Negative Esterase Imaging Data CT scan - chest: Radiologist's impression: [address] [address] [address] Scan Report Signed Patient: Bert Posada WMR#: [id number] : [id number]:[id number] Age/Sex: 72 / MDate of Service: 04/06/18 Loc: ED Accession Number: [id number] Procedure: CT angio chest abdomen Ordering Provider: Sundar Franks D.O. PROCEDURE: CT ANGIO CHEST ABDOMEN INDICATIONS: Upper chest pain TECHNIQUE: Precontrast 5 mm thick sections acquired from the lung apices to the iliac crests. After the administration of intravenous contrast, 2.5 mm thick sections again acquired from the lung apices to the iliac crests. 10 mm maximum intensity projection (MIP) oblique sagittal and coronal reformats were then acquired. For radiation dose reduction , the following was used: automated exposure control. COMPARISON: [facility], CT, THORAX WITH CONTRAST, 07/18/2009, 11:17. [facility], CR, CHEST 1 VIEW, 03/09/2017, 15:34. FINDINGS: Image quality: Excellent. AORTA: No aneuysmal dilation, occlusion or stenosis. CHEST: Lungs and pleura: No acute airspace opacities. No pleural effusions or pneumothorax. Central and peripheral airways are patent and normal in caliber. Mediastinum: Heart size is normal. No pericardial effusion. No mediastinal or hilar adenopathy by size criteria. Central pulmonary arteries are normal in size. Esophagus is normal in caliber. Large hiatal hernia. Bones and chest wall: No axillary adenopathy by size criteria. Thyroid gland demonstrate bilaterally low attenuation foci, most prominent on the right, measuring 20 mm AP x 12 mm transverse, new compared to prior exam. No suspicious bony lesions. No vertebral body compression fractures. ABDOMEN: Vasculature: Celiac trunk and mesenteric arteries are patent. Renal arteries are also patent. Solid organs: Liver is normal in size and enhancement. Gallbladder is unremarkable. Biliary system is non dilated. Pancreas enhances normally. Spleen is normal in size and enhancement. No adrenal nodules. Both kidneys are normal in size and enhancement, without hydronephrosis. Peritoneum and bowel: No free fluid or air. Bowel loops are normal in caliber and wall thickness. Nodes and vessels: No retroperitoneal or mesenteric adenopathy by size criteria. Inferior vena cava is normal in morphology. Bones: No suspicious bony lesions. No vertebral body compression fractures. Miscellaneous: No ventral hernias. IMPRESSION: 1. No aortic dissection or aneurysmal dilation. 2. Large hiatal hernia. 3. Low attenuation thyroid foci, new compared to prior exam. Thyroid ultrasound is recommended for further evaluation. Dictated by: Chantale Millan M.D. on 04/06/2018 at 10:25 Approved by: Chantale Millan M.D. on 04/06/2018 at 10:34 ECG Data Attestation: I personally reviewed and interpreted this ECG as follows: Prior ECG tracings: not available for review Interpretation: EKG is normal sinus rhythm and free of any signs of ischemia or ectopy. EKG 2. Unchanged MDM Narrative Medical decision making narrative: 72-year-old male with known cardiac disease presents with chest pain with exertion that resolved with rest. EKG and labs are unremarkable. His cardiology group is happy to see him in follow up with some medication adjustments. He and have had questions answered to their apparent satisfaction and have verbalized understanding, including return precautions Discharge Plan Departure Patient Disposition: Home Clinical Impression: Chest pain Discharge Date/Time: 04/06/18 11:21 Interventions: ED Discharge Assessment Last Done: 04/06/18 11:21 Instructions: DI for Chest Pain Activity Restrictions/Additional Instructions: *You have been diagnosed with [ chest pain ] *What to do: *Take medications as directed: Your prescriptions have been electronically transmitted to [facility] at your request *Follow up with your hand packer in 2-3 days, call for an appointment. Let them know you were seen in the Emergency Department and that we ask that you be seen in follow up *Return to ER if you should have any new, worsening or concerning symptoms Prescriptions: New nitroglycerin 0.4 mg tablet, sublingual 0.4 mg SL Q5-15M PRN (Reason: chest pain) Qty: 30 RF: 0 isosorbide mononitrate 10 mg tablet 10 mg PO BID Qty: 30 RF: 0 No Action tamsulosin [Flomax] 0.4 MG capsule,extended release 24hr 0.4 mg PO BID Qty: 0 RF: 0 aspirin 81 MG tablet,delayed release (DR/EC) 1 tab PO QPM Qty: 0 RF: 0 multivitamin Tablet 1 tab PO DAILY RF: 0 coQ10 (ubiquinol) 100 mg Capsule 1 cap PO QAM RF: 0 magnesium 250 mg Tablet 250 mg PO DAILY RF: 0 cholecalciferol (vitamin D3) [Vitamin D3] 2,000 unit Capsule 1 cap PO DAILY RF: 0 atorvastatin 40 mg tablet 1 tab PO DAILY RF: 0 pantoprazole 40 mg tablet,delayed release (DR/EC) 1 tab PO DAILY RF: 0 Vision Formula 50+ 1 tab PO QPM RF: 0
[2018-04-06 08:54] LABS: Add Manual Diff / Slide Review NO; Basophils Percent Auto 1.2 % (0-2); Hemoglobin 14.7 g/dL (13.5-17.5); Lymphocytes Percent Auto 24.1 % (25-40); Mean Corpuscular HGB Conc 33.4 % (30-36); Mean Corpuscular Hemoglobin 28.9 PG (26-34); Mean Corpuscular Volume 86.6 fL (80-100); Monocytes Percent Auto 9.2 % (3-14); Neutrophils Absolute Auto 4500 /uL (3000-5900); Neutrophils Percent Auto 63.5 % (50-75); Platelet Count 265 X10^3/uL (150-400); Red Blood Cell Count 5.08 X10^6/uL (4.5-5.9); Red Cell Distribution Width 13.4 % (11.6-14.8); White Blood Cell Count 7.1 X10^3/uL (4.5-11.0)
[2018-04-06] MEDS: SODIUM CHLORIDE 0.9% 1,000 ML 150 ML IV (08:58)
[2018-04-06 09:06] LABS: Alanine Aminotransferase 32 IU/L (21-72); Albumin 4.6 g/dL (3.5-5.0); Albumin Globulin Ratio 1.4 (1.0-2.8); Alkaline Phosphatase 46 U/L (38-126); Aspartate Aminotransferase 29 IU/L (17-59); BUN Creatinine Ratio 18.8 (6-22); Bilirubin Total 0.7 mg/dL (0.2-1.3); Blood Urea Nitrogen 15 mg/dL (9-20); Calcium 9.5 mg/dL (8.4-10.2); Carbon Dioxide 26 mmol/L (22-32); Chloride 103 mmol/L (98-107); Creatine Kinase 87 U/L (55-170); Estimated Glomerular Filt Rate > 60.0 mL/min (>60); Globulin 3.2 g/dL (1.7-4.1); Glucose 100 mg/dL (80-110); HEMOLYSIS 31 (0-50); Lipase 76 U/L (23-300); Sodium 141 mmol/L (137-145); Total Protein 7.8 g/dL (6.3-8.2)
[2018-04-06 09:17] LABS: Troponin I < 0.012 ng/mL (0.01-0.034)
[2018-04-06] MEDS: METOPROLOL TARTRATE 5 MG/5 ML INJ IV ×3 (09:31→09:47)
--- NOTE | 2018-04-06 10:15 | DI.CT.S_ITS ---
PROCEDURE: CT ANGIO CHEST ABDOMEN INDICATIONS: Upper chest pain TECHNIQUE: Precontrast 5 mm thick sections acquired from the lung apices to the iliac crests. After the administration of intravenous contrast, 2.5 mm thick sections again acquired from the lung apices to the iliac crests. 10 mm maximum intensity projection (MIP) oblique sagittal and coronal reformats were then acquired. For radiation dose reduction, the following was used: automated exposure control. COMPARISON: [facility], CT, THORAX WITH CONTRAST, 07/18/2009, 11:17. [facility], CR, CHEST 1 VIEW, 03/09/2017, 15:34. FINDINGS: Image quality: Excellent. AORTA: No aneuysmal dilation, occlusion or stenosis. CHEST: Lungs and pleura: No acute airspace opacities. No pleural effusions or pneumothorax. Central and peripheral airways are patent and normal in caliber. Mediastinum: Heart size is normal. No pericardial effusion. No mediastinal or hilar adenopathy by size criteria. Central pulmonary arteries are normal in size. Esophagus is normal in caliber. Large hiatal hernia. Bones and chest wall: No axillary adenopathy by size criteria. Thyroid gland demonstrate bilaterally low attenuation foci, most prominent on the right, measuring 20 mm AP x 12 mm transverse, new compared to prior exam. No suspicious bony lesions. No vertebral body compression fractures. ABDOMEN: Vasculature: Celiac trunk and mesenteric arteries are patent. Renal arteries are also patent. Solid organs: Liver is normal in size and enhancement. Gallbladder is unremarkable. Biliary system is non dilated. Pancreas enhances normally. Spleen is normal in size and enhancement. No adrenal nodules. Both kidneys are normal in size and enhancement, without hydronephrosis. Peritoneum and bowel: No free fluid or air. Bowel loops are normal in caliber and wall thickness. Nodes and vessels: No retroperitoneal or mesenteric adenopathy by size criteria. Inferior vena cava is normal in morphology. Bones: No suspicious bony lesions. No vertebral body compression fractures. Miscellaneous: No ventral hernias. IMPRESSION: 1. No aortic dissection or aneurysmal dilation. 2. Large hiatal hernia. 3. Low attenuation thyroid foci, new compared to prior exam. Thyroid ultrasound is recommended for further evaluation. Dictated by: Chantale Millan M.D. on 04/06/2018 at 10:25 Approved by: Chantale Millan M.D. on 04/06/2018 at 10:34
== END 2018-04-06 11:21 | disposition home or self-care (01) ==
PROVIDERS: Emergency Provider Emergency Medicine; PCP Family Medicine
DX: R07.89 Other chest pain (principal)
CPT/HCPCS: 36591; 71045; 71275; 74175; 80053; 81003; 82550; 83690; 84484; 85025; 93005; 96361; 96374; 99284; 99285; Q9967

== ENCOUNTER 2018-06-14 14:30 | Outpatient (RCR) | payer MEDICARE, OTHER, SELFPAY ==
--- NOTE | 2018-06-05 13:04 | PT.OIE ---
Current Diagnoses Dorsalgia, unspecified (06/05/18) Past Surgical History (Last Updated 04/06/18 @ 08:46 by Sundar Franks DO) Hx of heart artery stent (Acute) Provider Visit Care Team Role Provider Type Scotty Caceres MD Attending Provider Physician Primary Care Provider Specialty: Family Practice Address: [address] [place], [address] Email: [email or web address] Physical Therapy Initial Evaluation PT-OP-A Visit Information Start: 06/05/18 09:43 Freq: Status: Active Protocol: Document 06/05/18 12:13 EA (Rec: 06/05/18 12:54 EA [id number]) Out-Patient Physical Therapy Visit Information Visit Information Visit Type Initial Evaluation Visit Start Time 09:00 Visit Stop Time 09:55 Total Visit Minutes 55 Visit Number 1 Number of OXYGEN THERAPY TECHNICIAN Visits 0 Evaluation Information Evaluation Date 06/05/18 Precautions Precautions None PT-OP-B Current Condition Start: 06/05/18 09:43 Freq: Status: Active Protocol: Document 06/05/18 12:13 EA (Rec: 06/05/18 12:54 EA [id number]) Current Condition History of Current Condition Onset Date 4 wks ago Current Complaints Left mid back localized cramping pain History of Current Condition Present condition started 4 wks ago in gradual passion with no known injury or significant history; patient denies that mid back pain is from hiatal hernia. Pt mentions that he usually performed regular fitness upper back and shoulder exercises with no warm up. He stated that he currently stopped doing resistance training as his condition is getting worst that us frequently aggravated in an upright posture. Prior Treatments and Tests CT and angio 2 months ago with no significant results except with hiatal hernia. Future Testing and Treatments Planned None identified Treatment Goals Patient/Caregiver Goals Patient wants to totally eliminated pain so he could go kevin to his previopus level of function. Prior Functional Status Baseline Function- ADL's Independent Baseline Function- Mobility Independent Baseline Function- Gait No limitation Baseline Function- Work/School Retired Baseline Function- Recreation/Hobbies Indep with ability to perform regular cardio and whole body strength exercises Current Functional Impairments (Reported) Functional Limitations- ADL's Indep with difficulty in upright position Functional Limitations- Mobility/Gait Indep except it increased with upright position in long distance amb Functional Limitations- Work/School retired Functional Limitations- Recreation/ Unable to performed activities Hobbies that requires standing upright for a long period of time. Unable to perform regular fitness activity. PT-OP-C Subjective Start: 06/05/18 09:43 Freq: Status: Active Protocol: Document 06/05/18 12:13 EA (Rec: 06/05/18 12:54 EA [id number]) OP-PT Subjective Patient Comments Patient Comments Patient states my cramping pain aggravated when I'm in upright posture in standing. Pt rated pain 5/10 at worst and 1/10 at best. Patient Reported Progress Same OP-PT Pain Assessment Location Left Upper Medial Back Pain Location Details medial scap border: Medial traps, rhomboids Scale Used Numeric (1 - 10) Description Cramping Tightness Frequency Intermittent Pain Aggravating Factors Position Changing Position Standing Home Pain Medication Use Pain Medications Used No PT-OP-J Posture/Palpation/Skin Start: 06/05/18 09:43 Freq: Status: Active Protocol: Document 06/05/18 12:13 EA (Rec: 06/05/18 12:54 EA [id number]) Posture Evaluation Position Standing Evaluation View lat/post Head/C-Spine Posture Excess Extension Forward Head T-Spine Posture Flexible Scoliosis on (L) Flexible Scoliosis on (R) Thorax Posture (R) Elevated Palpation Assessment Location One Palpation Location Left rhomboids, mid traps, parathoracis Palpation Findings Soft Tissue Tightness Tenderness Trigger Point Skin Assessment Other Assessments Skin Assessment Comments Normal skin PT-OP-K Range of Motion Start: 06/05/18 09:43 Freq: Status: Active Protocol: Document 06/05/18 12:13 EA (Rec: 06/05/18 12:54 EA [id number]) Lumbar Spine Range of Motion Lumbar Spine Active Testing Position Standing Comments Lumbosacral AROM are WFL Shoulder Goniometric Range of Motion Shoulder Measured in Degrees Right Shoulder ROM WFL Yes Left Shoulder ROM WFL Yes PT-OP-L Special Tests Start: 06/05/18 09:43 Freq: Status: Active Protocol: Document 06/05/18 12:13 EA (Rec: 06/05/18 12:54 EA [id number]) Special Tests Cervical Spine Special Tests Foraminal Compression Test Results negative PT-OP-M Strength Start: 06/05/18 09:43 Freq: Status: Active Protocol: Document 06/05/18 12:13 EA (Rec: 06/05/18 12:54 EA [id number]) Shoulder Strength Shoulder Manual Muscle Testing Left Flexion 5 Normal Extension 5 Normal Abduction (C5) 5 Normal Adduction 5 Normal External Rotation 4+ Good+ Internal Rotation 5 Normal Horizontal Abduction 4 Good Horizontal Adduction 5 Normal Right Reason Not Measured WFL PT-OP-Q Treatments Start: 06/05/18 09:43 Freq: Status: Active Protocol: Document 06/05/18 12:13 EA (Rec: 06/05/18 12:54 EA [id number]) Manual Therapy Treatment Soft Tissue Mobilization 1 Body Location Rhomboids, mid traps, parathoracis Mobilization Type Myofascial Release Rolling Sustained Pressure Trigger Point Release Intensity/Depth Moderate Body Position Prone Comments Gentle Effleurage-petrissage to begin. Self-Care/Home Management Treatment Education Patient Education Home Exercise Program Pain Management Posture Safety Other Education Discussed and educated both patient and with all pain management and exercises. PT-OP-R Modalities Start: 06/05/18 09:43 Freq: Status: Active Protocol: Document 06/05/18 12:13 EA (Rec: 06/05/18 12:54 EA [id number]) Electric Stimulation Electric Stimulation Functional Electric Stimulation Body Location Left mid traps, rhomboids, parathoracis Duration (Minutes) 15 Frequency 9 Contraction Type Normal Patient Position Prone Combined With Heat/Cold Hot Pack Comments Precaution with head position PT-OP-T Assessment and Plan Start: 06/05/18 09:43 Freq: Status: Active Protocol: Document 06/05/18 12:13 EA (Rec: 06/05/18 12:54 EA [id number]) Physical Therapy Assessment Rehab Potential Rehabilitation Potential Excellent Evaluation Complexity Number of Personal Factors/Comorbidities 0 Number of Body Systems Impaired 1-2 Clinical Presentation at Evaluation Stable Impairments Impairments Activity Tolerance Pain Posture Soft Tissue Mobility Strength Goals Three Impairment Unable to get back to regular fitness routine Usp Goal (LTG) Patient will come back to regular fitness upper back resistance training with good understanding of proper exercises mechanics. LTG Duration 4 wks Two Impairment No HEP in place Magnetic Locater Goal (LTG) Patient will perform, comply, and understand safe home exercises. LTG Duration 4 wks One Impairment Impaired standing upright tolerance Magnetic Locater Goal (LTG) Patient will stand and perform activities with upright posture with no increase in pain for more than 30 mins. LTG Duration 4 wks Assessment Summary Assessment Pleasant 72 y/o male patient with a referring diagnosis of upper back pain. Today patient presented with tight, tender left mid-traps, rhomboids, and parathoracis, and LS. cervical nerve root reveals negative with special tests. No significant weakness noted to left shoulder except with mild weakness to shoulder ER. History reveals poor fitness exercises program with no warm up and stretching routine. Upright posture reveals negative poor head-trunk posture. In my impression, patient is likely to have left midscapular tightness with trigger points to scapular border. Patient would benefit with skilled PT to decrease pain, improve posture, and improve muscular imbalance. Physical Therapy Plan Frequency and Duration Frequency of Treatment 2x/Week Duration of Treatment 8 wks Plan of Care Start Date 06/05/18 Plan of Care End Date 07/31/18 Therapeutic Interventions Therapeutic Interventions Home Exercise Program Manual Therapy Self-Care/Home Management Taping Therapeutic Exercises Modalities Cold Pack/Ice Massage Electric Stimulation Hot Packs Iontophoresis Ultrasound Next Visit Focus/Plan Next Note Type Treatment Note Next Visit Plan Continue manual, heat, flexibility, IFC. Review HEP Follow up with previous prone position during manual PT.
--- NOTE | 2018-06-05 13:07 | PT.OPPOC ---
Current Diagnoses Dorsalgia, unspecified (06/05/18) Provider Visit Care Team Role Provider Type Scotty Caceres MD Attending Provider Physician Primary Care Provider Specialty: Family Practice Address: [address] [place], [address] Email: [email or web address] Plan Of Care PT-OP-T Assessment and Plan Start: 06/05/18 09:43 Freq: Status: Active Protocol: Document 06/05/18 12:13 EA (Rec: 06/05/18 12:54 EA [id number]) Physical Therapy Assessment Rehab Potential Rehabilitation Potential Excellent Evaluation Complexity Number of Personal Factors/Comorbidities 0 Number of Body Systems Impaired 1-2 Clinical Presentation at Evaluation Stable Impairments Impairments Activity Tolerance Pain Posture Soft Tissue Mobility Strength Goals Three Impairment Unable to get back to regular fitness routine Caramel Maker Goal (LTG) Patient will come back to regular fitness upper back resistance training with good understanding of proper exercises mechanics. LTG Duration 4 wks Two Impairment No HEP in place Group Home Goal (LTG) Patient will perform, comply, and understand safe home exercises. LTG Duration 4 wks One Impairment Impaired standing upright tolerance Group Home Goal (LTG) Patient will stand and perform activities with upright posture with no increase in pain for more than 30 mins. LTG Duration 4 wks Assessment Summary Assessment Pleasant 72 y/o male patient with a referring diagnosis upper back pain. Today patient presented with tight, tender left mid-traps, rhomboids, and parathoracis, and LS. cervical nerve root reveals negative with special tests. No significant weakness noted to left shoulder except with mild weakness to shoulder ER. History reveals poor fitness exercises program with no warm up and stretching routine. Upright posture reveals negative poor head-trunk posture. In my impression, patient is likely to have left mid-scapular tightness with trigger points to scapular border. Patient would benefit with skilled PT to decrease pain, improve posture, and improve muscular imbalance. Physical Therapy Plan Frequency and Duration Frequency of Treatment 2x/Week Duration of Treatment 8 wks Plan of Care Start Date 06/05/18 Plan of Care End Date 07/31/18 Therapeutic Interventions Therapeutic Interventions Home Exercise Program Manual Therapy Self-Care/Home Management Taping Therapeutic Exercises Modalities Cold Pack/Ice Massage Electric Stimulation Hot Packs Iontophoresis Ultrasound Next Visit Focus/Plan Next Note Type Treatment Note Next Visit Plan Continue manual, heat, flexibility, IFC. Review HEP Follow upwith previous prone position during manual PT. Plan of Care Dates Plan of Care Start Date 06/05/18 Plan of Care End Date 07/31/18 Please Sign and Return: I have reviewed this Plan of Care and certify that the skilled therapy services above are required to meet the patient?s needs. Physician Signature Date Printed Name and Credentials Clinical Instructor Signature Printed Name and Credentials
--- NOTE | 2018-06-07 16:50 | PT.OTN ---
Current Diagnoses Dorsalgia, unspecified (06/07/18) Physical Therapy Treatment Note PT-OP-A Visit Information Start: 06/05/18 09:43 Freq: Status: Active Protocol: Document 06/07/18 16:50 RCC (Rec: 06/07/18 17:51 RCC [id number]) Out-Patient Physical Therapy Visit Information Visit Information Visit Type Treatment Note Visit Start Time 16:00 Visit Stop Time 16:50 Total Visit Minutes 50 Visit Number 2 Number of BI REPORT DEVELOPER Visits 0 Evaluation Information Evaluation Date 06/05/18 PT-OP-B Current Condition Start: 06/05/18 09:43 Freq: Status: Active Protocol: Document 06/05/18 12:13 EA (Rec: 06/05/18 12:54 EA [id number]) Current Condition History of Current Condition Onset Date 4 wks ago Current Complaints Left mid back localized cramping pain History of Current Condition Present condition started 4 wks ago in gradual passion with no known injury or significant history; patient denies mid back pain is from hiatal hernia. Pt mention that he usually performed regular fitness upper back and shoulder exercises with no warm up. He stated that he currently stopped doing resistnace training as his condition is getting worst that us frequently aggravted in an upright posture. Prior Treatments and Tests CT and angio 2 months ago with no significant results except with hiatal hernia. Future Testing and Treatments Planned None identified Treatment Goals Patient/Caregiver Goals Patient wants to totally eliminated pain so he could go kevin to his previopus level of function. Prior Functional Status Baseline Function- ADL's Independent Baseline Function- Mobility Independent Baseline Function- Gait No limitation Baseline Function- Work/School Retired Baseline Function- Recreation/Hobbies Indep with ability to perform regular cardio and whole body strength exercises Current Functional Impairments (Reported) Functional Limitations- ADL's Indep with difficulty in upright position Functional Limitations- Mobility/Gait Indep except it increased with upright position in long distance amb Functional Limitations- Work/School retired Functional Limitations- Recreation/ Unable to peformed activities Hobbies that requires standing upright for a long period of time. Unable to perform regular fitness activity. PT-OP-C Subjective Start: 06/05/18 09:43 Freq: Status: Active Protocol: Document 06/07/18 16:50 RCC (Rec: 06/07/18 17:51 RCC [id number]) OP-PT Subjective Patient Comments Patient Comments Pt has been using the tennis ball vs wall 3 times per day and his has been doing massage at night, he does feel improvements. Patient Reported Progress Improving PT-OP-J Posture/Palpation/Skin Start: 06/05/18 09:43 Freq: Status: Active Protocol: Document 06/05/18 12:13 EA (Rec: 06/05/18 12:54 EA [id number]) Posture Evaluation Position Standing Evaluation View lat/post Head/C-Spine Posture Excess Extension Forward Head T-Spine Posture Flexible Scoliosis on (L) Flexible Scoliosis on (R) Thorax Posture (R) Elevated Palpation Assessment Location One Palpation Location Left rhomboids, mid traps, parathoracis Palpation Findings Soft Tissue Tightness Tenderness Trigger Point Skin Assessment Other Assessments Skin Assessment Comments Normal skin PT-OP-K Range of Motion Start: 06/05/18 09:43 Freq: Status: Active Protocol: Document 06/05/18 12:13 EA (Rec: 06/05/18 12:54 EA [id number]) Lumbar Spine Range of Motion Lumbar Spine Active Testing Position Standing Comments Lumbosacral AROM are WFL Shoulder Goniometric Range of Motion Shoulder Measured in Degrees Right Shoulder ROM WFL Yes Left Shoulder ROM WFL Yes PT-OP-L Special Tests Start: 06/05/18 09:43 Freq: Status: Active Protocol: Document 06/05/18 12:13 EA (Rec: 06/05/18 12:54 EA [id number]) Special Tests Cervical Spine Special Tests Foraminal Compression Test Results negative PT-OP-M Strength Start: 06/05/18 09:43 Freq: Status: Active Protocol: Document 06/05/18 12:13 EA (Rec: 06/05/18 12:54 EA [id number]) Shoulder Strength Shoulder Manual Muscle Testing Left Flexion 5 Normal Extension 5 Normal Abduction (C5) 5 Normal Adduction 5 Normal External Rotation 4+ Good+ Internal Rotation 5 Normal Horizontal Abduction 4 Good Horizontal Adduction 5 Normal Right Reason Not Measured WFL PT-OP-Q Treatments Start: 06/05/18 09:43 Freq: Status: Active Protocol: Document 06/07/18 16:50 RCC (Rec: 06/07/18 17:51 RCC [email or web address]) Therapeutic Exercises Standing Exercises modified prayer stretch Side bilateral Equipment Used silver theraball Reps/Minutes 3 each position Comments neutral, bias to L and R Other Exercises thread the needle Other Exercise Name quadruped thread the needle Side bilateral Reps/Minutes 5 each cat/cow Side bilateral Reps/Minutes 10 Comments quadruped Manual Therapy Treatment Soft Tissue Mobilization 1 Body Location Rhomboids, mid traps, parathoracis Mobilization Type Myofascial Release Rolling Sustained Pressure Trigger Point Release Intensity/Depth Moderate Body Position Prone Comments Gentle Effleurage-petrissage to begin. PT-OP-R Modalities Start: 06/05/18 09:43 Freq: Status: Active Protocol: Document 06/05/18 12:13 EA (Rec: 06/05/18 12:54 EA [id number]) Electric Stimulation Electric Stimulation Functional Electric Stimulation Body Location Left mid traps, rhomboids, parathoracis Duration (Minutes) 15 Frequency 9 Contraction Type Normal Patient Position Prone Combined With Heat/Cold Hot Pack Comments Precaution with head position PT-OP-T Assessment and Plan Start: 06/05/18 09:43 Freq: Status: Active Protocol: Document 06/07/18 16:50 RCC (Rec: 06/07/18 17:51 RCC [email or web address]) Physical Therapy Assessment Assessment Summary Assessment Pt with bilateral tension in mid trapezius and rhomboids, as well as mid-thoracic spinal mm, although appears to be improving since initial evaluation. Pt tolerated manual therapy well, and able to perform stretching and quadruped exercises with cuing ( took notes for home). Pt's pain likely due to poor posture and muscular imbalance , therefore recommending strength training of parascapular musculature once tone is more controlled. Physical Therapy Plan Frequency and Duration Frequency of Treatment 2x/Week Duration of Treatment 8 wks Plan of Care Start Date 06/05/18 Plan of Care End Date 07/31/18 Next Visit Focus/Plan Next Note Type Treatment Note Next Visit Plan cont. manual therapy and stretching, add pectoral stretch in doorway and sidelying reach and roll stretch; foam roll with UE movements for thoracic spine mobilizations; when tone under control, add scapular strengthening.
--- NOTE | 2018-06-12 15:01 | PT.OTN ---
Current Diagnoses Dorsalgia, unspecified (06/12/18) Physical Therapy Treatment Note PT-OP-A Visit Information Start: 06/05/18 09:43 Freq: Status: Active Protocol: Document 06/12/18 14:20 EA (Rec: 06/12/18 14:26 EA [id number]) Out-Patient Physical Therapy Visit Information Visit Information Visit Type Treatment Note Visit Start Time 13:45 Visit Stop Time 14:30 Total Visit Minutes 50 Visit Number 3 Number of SENIOR ANIMATOR Visits 0 PT-OP-B Current Condition Start: 06/05/18 09:43 Freq: Status: Active Protocol: Document 06/05/18 12:13 EA (Rec: 06/05/18 12:54 EA [id number]) Current Condition History of Current Condition Onset Date 4 wks ago Current Complaints Left mid back localized cramping pain History of Current Condition Present condition started 4 wks ago in gradual passion with no known injury or significant history; patient denies mid back pain is from hiatal hernia. Pt mention that he usually performed regular fitness upper back and shoulder exercises with no warm up. He stated that he currently stopped doing resistnace training as his condition is getting worst that us frequently aggravted in an upright posture. Prior Treatments and Tests CT and angio 2 months ago with no significant results except with hiatal hernia. Future Testing and Treatments Planned None identified Treatment Goals Patient/Caregiver Goals Patient wants to totally eliminated pain so he could go kevin to his previopus level of function. Prior Functional Status Baseline Function- ADL's Independent Baseline Function- Mobility Independent Baseline Function- Gait No limitation Baseline Function- Work/School Retired Baseline Function- Recreation/Hobbies Indep with ability to perform regular cardio and whole body strength exercises Current Functional Impairments (Reported) Functional Limitations- ADL's Indep with difficulty in upright position Functional Limitations- Mobility/Gait Indep except it increased with upright position in long distance amb Functional Limitations- Work/School retired Functional Limitations- Recreation/ Unable to peformed activities Hobbies that requires standing upright for a long period of time. Unable to perform regular fitness activity. PT-OP-C Subjective Start: 06/05/18 09:43 Freq: Status: Active Protocol: Document 06/12/18 14:20 EA (Rec: 06/12/18 14:26 EA [id number]) OP-PT Subjective Patient Comments Patient Comments Pt reports consistent with HEP ; back is getting better. Patient Reported Progress Improving PT-OP-J Posture/Palpation/Skin Start: 06/05/18 09:43 Freq: Status: Active Protocol: Document 06/05/18 12:13 EA (Rec: 06/05/18 12:54 EA [id number]) Posture Evaluation Position Standing Evaluation View lat/post Head/C-Spine Posture Excess Extension Forward Head T-Spine Posture Flexible Scoliosis on (L) Flexible Scoliosis on (R) Thorax Posture (R) Elevated Palpation Assessment Location One Palpation Location Left rhomboids, mid traps, parathoracis Palpation Findings Soft Tissue Tightness Tenderness Trigger Point Skin Assessment Other Assessments Skin Assessment Comments Normal skin PT-OP-K Range of Motion Start: 06/05/18 09:43 Freq: Status: Active Protocol: Document 06/05/18 12:13 EA (Rec: 06/05/18 12:54 EA [id number]) Lumbar Spine Range of Motion Lumbar Spine Active Testing Position Standing Comments Lumbosacral AROM are WFL Shoulder Goniometric Range of Motion Shoulder Measured in Degrees Right Shoulder ROM WFL Yes Left Shoulder ROM WFL Yes PT-OP-L Special Tests Start: 06/05/18 09:43 Freq: Status: Active Protocol: Document 06/05/18 12:13 EA (Rec: 06/05/18 12:54 EA [id number]) Special Tests Cervical Spine Special Tests Foraminal Compression Test Results negative PT-OP-M Strength Start: 06/05/18 09:43 Freq: Status: Active Protocol: Document 06/05/18 12:13 EA (Rec: 06/05/18 12:54 EA [id number]) Shoulder Strength Shoulder Manual Muscle Testing Left Flexion 5 Normal Extension 5 Normal Abduction (C5) 5 Normal Adduction 5 Normal External Rotation 4+ Good+ Internal Rotation 5 Normal Horizontal Abduction 4 Good Horizontal Adduction 5 Normal Right Reason Not Measured WFL PT-OP-Q Treatments Start: 06/05/18 09:43 Freq: Status: Active Protocol: Document 06/12/18 14:26 EA (Rec: 06/12/18 14:29 EA [id number]) Cardio Equipment Elliptical Duration (Minutes) 5 Resistance 6 Other warm up Gym Equipment Cable Column (Body Solid) Other- 1 Details adjustable cable : Pull down, mid row, low row, and sit to stand row. Resistance 30# Reps/Time x 12 reps Therapeutic Exercises Standing Exercises 2 Standing Exercise Name Rhomboids, mid traps stretch Side bilateral Reps/Minutes x 15SH x 2 1 Standing Exercise Name Pectoral stretch Side bilateral Reps/Minutes x 15 SH Manual Therapy Treatment Soft Tissue Mobilization 1 Body Location Rhomboids, mid traps, parathoracis Mobilization Type Myofascial Release Rolling Sustained Pressure Trigger Point Release Intensity/Depth Moderate Body Position Prone Comments Gentle Effleurage-petrissage to begin. PT-OP-R Modalities Start: 06/05/18 09:43 Freq: Status: Active Protocol: Document 06/12/18 14:20 EA (Rec: 06/12/18 14:26 EA [id number]) Electric Stimulation Electric Stimulation Functional Electric Stimulation Body Location Left mid traps, rhomboids, parathoracis Duration (Minutes) 15 Frequency 9 Contraction Type Normal Patient Position Prone Combined With Heat/Cold Hot Pack Comments Precaution with head position PT-OP-T Assessment and Plan Start: 06/05/18 09:43 Freq: Status: Active Protocol: Document 06/12/18 14:20 EA (Rec: 06/12/18 14:26 EA [id number]) Physical Therapy Assessment Assessment Summary Assessment Pt tolerated treatment well. decrased symptoms after the session. Patient is progressing well. Physical Therapy Plan Next Visit Focus/Plan Next Note Type Treatment Note
--- NOTE | 2018-06-14 15:40 | PT.OTN ---
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 Pt mention that he usually performed regular fitness upper back and shoulder exercises with no warm up. He stated that he currently stopped doing resistnace training as his condition is getting worst that us frequently aggravted in an upright posture. Prior Treatments and Tests CT and angio 2 months ago with no significant results except with hiatal hernia. Future Testing and Treatments Planned None identified Treatment Goals Patient/Caregiver Goals Patient wants to totally eliminated pain so he could go kevin to his previopus level of function. Prior Functional Status Baseline Function- ADL's Independent Baseline Function- Mobility Independent Baseline Function- Gait No limitation Baseline Function- Work/School Retired Baseline Function- Recreation/Hobbies Indep with ability to perform regular cardio and whole body strength exercises Current Functional Impairments (Reported) Functional Limitations- ADL's Indep with difficulty in upright position Functional Limitations- Mobility/Gait Indep except it increased with upright position in long distance amb Functional Limitations- Work/School retired Functional Limitations- Recreation/ Unable to peformed activities Hobbies that requires standing upright for a long period of time. Unable to perform regular fitness activity. PT-OP-C Subjective Start: 06/05/18 09:43 Freq: Status: Active Protocol: Document 06/14/18 15:34 EA (Rec: 06/14/18 15:39 EA [id number]) OP-PT Subjective Patient Comments Patient Comments Pt reports that he is going for a prostate surgery; states lid back is is feeling much better. Patient Reported Progress Improving PT-OP-J Posture/Palpation/Skin Start: 06/05/18 09:43 Freq: Status: Active Protocol: Document 06/05/18 12:13 EA (Rec: 06/05/18 12:54 EA [id number]) Posture Evaluation Position Standing Evaluation View lat/post Head/C-Spine Posture Excess Extension Forward Head T-Spine Posture Flexible Scoliosis on (L) Flexible Scoliosis on (R) Thorax Posture (R) Elevated Palpation Assessment Location One Palpation Location Left rhomboids, mid traps, parathoracis Palpation Findings Soft Tissue Tightness Tenderness Trigger Point Skin Assessment Other Assessments Skin Assessment Comments Normal skin PT-OP-K Range of Motion Start: 06/05/18 09:43 Freq: Status: Active Protocol: Document 06/05/18 12:13 EA (Rec: 06/05/18 12:54 EA [id number]) Lumbar Spine Range of Motion Lumbar Spine Active Testing Position Standing Comments Lumbosacral AROM are WFL Shoulder Goniometric Range of Motion Shoulder Measured in Degrees Right Shoulder ROM WFL Yes Left Shoulder ROM WFL Yes PT-OP-L Special Tests Start: 06/05/18 09:43 Freq: Status: Active Protocol: Document 06/05/18 12:13 EA (Rec: 06/05/18 12:54 EA [id number]) Special Tests Cervical Spine Special Tests Foraminal Compression Test Results negative PT-OP-M Strength Start: 06/05/18 09:43 Freq: Status: Active Protocol: Document 06/05/18 12:13 EA (Rec: 06/05/18 12:54 EA [id number]) Shoulder Strength Shoulder Manual Muscle Testing Left Flexion 5 Normal Extension 5 Normal Abduction (C5) 5 Normal Adduction 5 Normal External Rotation 4+ Good+ Internal Rotation 5 Normal Horizontal Abduction 4 Good Horizontal Adduction 5 Normal Right Reason Not Measured WFL PT-OP-Q Treatments Start: 06/05/18 09:43 Freq: Status: Active Protocol: Document 06/14/18 15:34 EA (Rec: 06/14/18 15:39 EA [id number]) Cardio Equipment Elliptical Duration (Minutes) 5 Resistance 6 Other warm up Gym Equipment Cable Column (Body Solid) Lat Pull Down Details Pull down Resistance 30lbs Reps/Time x 12 reps Other- 1 Details adjustable cable : Pull down, mid row, low row, and sit to stand row. Resistance 30# Reps/Time x 12 reps x 2 sets Therapeutic Exercises Standing Exercises 2 Standing Exercise Name Rhomboids, mid traps stretch Side bilateral Reps/Minutes x 15SH x 2 1 Standing Exercise Name Pectoral stretch Side bilateral Reps/Minutes x 15 SH Manual Therapy Treatment Soft Tissue Mobilization 1 Body Location Rhomboids, mid traps, parathoracis, upper traps Mobilization Type Myofascial Release Rolling Sustained Pressure Trigger Point Release Intensity/Depth Moderate Body Position Prone Comments Gentle Effleurage-petrissage to begin. PT-OP-R Modalities Start: 06/05/18 09:43 Freq: Status: Active Protocol: Document 06/14/18 15:34 EA (Rec: 06/14/18 15:39 EA [id number]) Electric Stimulation Electric Stimulation Functional Electric Stimulation Body Location Left mid traps, rhomboids, parathoracis Duration (Minutes) 15 Frequency 9 Contraction Type Normal Patient Position Prone Combined With Heat/Cold Hot Pack Comments Precaution with head position PT-OP-T Assessment and Plan Start: 06/05/18 09:43 Freq: Status: Active Protocol: Document 06/14/18 15:34 EA (Rec: 06/14/18 15:39 EA [id number]) Physical Therapy Assessment Assessment Summary Assessment No discomfort noted during exercises and executed exercises with good form. No noted tenderness to left mid back after manual PT. Patient is improved. To follow up after 3 wks Physical Therapy Plan Next Visit Focus/Plan Next Note Type Treatment Note Next Visit Plan re-assess due to post surgery reasons.
--- NOTE | 2018-10-04 17:24 | PT.OPDS ---
Current Diagnoses Dorsalgia, unspecified (06/14/18) Provider Visit Care Team Role Provider Type Scotty Caceres MD Attending Provider Physician Primary Care Provider Specialty: [facility] Practice Address: [facility] [place], [address] Email: [email or web address] Visit Number Visit Number 4 Discharge Summary PT-OP-B Current Condition Start: 06/05/18 09:43 Freq: Status: Active Protocol: Document 06/05/18 12:13 EA (Rec: 06/05/18 12:54 EA [id number]) Current Condition History of Current Condition Onset Date 4 wks ago Current Complaints Left mid back localized cramping pain History of Current Condition Present condition started 4 wks ago in gradual passion with no known injury or significant history; patient denies mid back pain is from hiatal hernia. Pt mention that he usually performed regular fitness upper back and shoulder exercises with no warm up. He stated that he currently stopped doing resistnace training as his condition is getting worst that us frequently aggravted in an upright posture. Prior Treatments and Tests CT and angio 2 months ago with no significant results except with hiatal hernia. Future Testing and Treatments Planned None identified Treatment Goals Patient/Caregiver Goals Patient wants to totally eliminated pain so he could go kevin to his previopus level of function. Prior Functional Status Baseline Function- ADL's Independent Baseline Function- Mobility Independent Baseline Function- Gait No limitation Baseline Function- Work/School Retired Baseline Function- Recreation/Hobbies Indep with ability to perform regular cardio and whole body strength exercises Current Functional Impairments (Reported) Functional Limitations- ADL's Indep with difficulty in upright position Functional Limitations- Mobility/Gait Indep except it increased with upright position in long distance amb Functional Limitations- Work/School retired Functional Limitations- Recreation/ Unable to peformed activities Hobbies that requires standing upright for a long period of time. Unable to perform regular fitness activity. PT-OP-C Subjective Start: 06/05/18 09:43 Freq: Status: Active Protocol: Document 10/04/18 17:22 EA (Rec: 10/04/18 17:24 EA [id number]) OP-PT Subjective Patient Comments Patient Comments Pt reports by phone today the he is good to go; states appreciated everything he learned about PT and he is doing very well. PT-OP-J Posture/Palpation/Skin Start: 06/05/18 09:43 Freq: Status: Active Protocol: Document 06/05/18 12:13 EA (Rec: 06/05/18 12:54 EA [id number]) Posture Evaluation Position Standing Evaluation View lat/post Head/C-Spine Posture Excess Extension Forward Head T-Spine Posture Flexible Scoliosis on (L) Flexible Scoliosis on (R) Thorax Posture (R) Elevated Palpation Assessment Location One Palpation Location Left rhomboids, mid traps, parathoracis Palpation Findings Soft Tissue Tightness Tenderness Trigger Point Skin Assessment Other Assessments Skin Assessment Comments Normal skin PT-OP-K Range of Motion Start: 06/05/18 09:43 Freq: Status: Active Protocol: Document 06/05/18 12:13 EA (Rec: 06/05/18 12:54 EA [id number]) Lumbar Spine Range of Motion Lumbar Spine Active Testing Position Standing Comments Lumbosacral AROM are WFL Shoulder Goniometric Range of Motion Shoulder Measured in Degrees Right Shoulder ROM WFL Yes Left Shoulder ROM WFL Yes PT-OP-L Special Tests Start: 06/05/18 09:43 Freq: Status: Active Protocol: Document 06/05/18 12:13 EA (Rec: 06/05/18 12:54 EA [id number]) Special Tests Cervical Spine Special Tests Foraminal Compression Test Results negative PT-OP-M Strength Start: 06/05/18 09:43 Freq: Status: Active Protocol: Document 06/05/18 12:13 EA (Rec: 06/05/18 12:54 EA [id number]) Shoulder Strength Shoulder Manual Muscle Testing Left Flexion 5 Normal Extension 5 Normal Abduction (C5) 5 Normal Adduction 5 Normal External Rotation 4+ Good+ Internal Rotation 5 Normal Horizontal Abduction 4 Good Horizontal Adduction 5 Normal Right Reason Not Measured WFL PT-OP-T Assessment and Plan Start: 06/05/18 09:43 Freq: Status: Active Protocol: Document 10/04/18 17:22 EA (Rec: 10/04/18 17:24 EA [id number]) Physical Therapy Assessment Assessment Summary Assessment Pt is discharge upon request. Physical Therapy Plan Discharge Physical Therapy Discharge Reasons Patient Request Discharge Comments No more complaint.
== END 2018-10-11 16:51 ==
LOC: PHYS 14:30
PROVIDERS: PCP Family Medicine; Visit Provider Family Medicine
DX: M54.9 Dorsalgia, unspecified (principal)
CPT/HCPCS: 97014; 97110; 97140; 97161; 97535; G0283

== ENCOUNTER → 2018-07-19 09:57 | Outpatient (CLI) | payer MEDICARE, OTHER, SELFPAY ==
[2018-07-19 11:15] LABS: Prostate Specific Antigen 0.465 ng/mL (0.10-4.00)
== END ==
PROVIDERS: PCP Family Medicine; Visit Provider Specialist
DX: N40.1 Benign prostatic hyperplasia with lower urinary tract symptoms (principal)
CPT/HCPCS: 36415; 84153

== ENCOUNTER → 2019-01-12 08:55 | Outpatient (CLI) | payer MEDICARE, OTHER, SELFPAY ==
[2019-01-12 10:23] LABS: Prostate Specific Antigen 0.225 ng/mL (0.10-4.00)
== END ==
PROVIDERS: Family Provider Family Medicine; PCP Family Medicine; Visit Provider Specialist
DX: N40.0 Benign prostatic hyperplasia without lower urinary tract symptoms (principal)
CPT/HCPCS: 36415; 84153

== ENCOUNTER → 2019-11-26 09:19 | Outpatient (CLI) | payer MEDICARE, OTHER, SELFPAY ==
--- NOTE | 2019-11-26 | DI.MRI.S_ITS ---
PROCEDURE: MR HEAD/BRAIN WO/W CON INDICATIONS: Unspecified optic atrophy TECHNIQUE: Noncontrast axial T1 spin echo, axial T2 fast spin echo, sagittal and axial FLAIR, coronal T2 fast spin echo, axial gradient echo, axial diffusion and ADC through the brain. After the administration of contrast, axial and coronal T1 spin echo with fat saturation through the brain. Dedicated thin section pre-and post contrast thin section fat saturated T1-weighted axial images were obtained through the orbits, with coronal thin section T1-weighted fat-saturated postcontrast images obtained through the orbits. Pre-contrast thin section STIR images were obtained through the orbits. COMPARISON: [facility], CT, SINUS SCREEN WO CONTRAST, 04/27/2016, 14:13. FINDINGS: Image quality: Excellent. CSF spaces: Basal cisterns are patent. No extra-axial fluid collections. Ventricles are normal in size and shape. Brain: In this patient with this given history, scrutiny is given to the orbits. No significant orbital abnormality is seen. Note is made of bilateral lens replacements. To the limits of this study, the optic nerves demonstrate no significant abnormality. No midline shift. No intracranial bleeds or masses. No abnormal intracranial enhancement. There is cerebral volume loss for age. There is periventricular white matter chronic small vessel ischemic change. The brainstem appears normal. Diffusion-weighted images demonstrate no acute ischemic insults. No chronic ischemic insults. Normal intravascular flow voids are present. Skull and face: Calvarial marrow is normal in signal. Sinuses: Sinuses and mastoids appear clear. IMPRESSION: No imaging explanation is found for this patient's presenting symptoms. Dictated by: Jassi Villatoro M.D. on 11/26/2019 at 10:43 Approved by: Jassi Villatoro M.D. on 11/26/2019 at 10:45
== END ==
PROVIDERS: Family Provider Family Medicine; PCP Family Medicine; Referring Provider Family Medicine; Visit Provider Family Medicine
DX: H47.20 Unspecified optic atrophy (principal); R51 Headache
CPT/HCPCS: 70553

== ENCOUNTER → 2020-01-16 08:58 | Outpatient (CLI) | payer MEDICARE, OTHER, SELFPAY ==
[2020-01-16 11:24] LABS: Prostate Specific Antigen 0.282 ng/mL (0.10-4.00)
== END ==
PROVIDERS: Family Provider Family Medicine; PCP Family Medicine; Referring Provider Specialist; Visit Provider Specialist
DX: N40.0 Benign prostatic hyperplasia without lower urinary tract symptoms (principal)
CPT/HCPCS: 84153

== ENCOUNTER → 2020-07-04 08:34 | Outpatient (CLI) | payer MEDICARE, OTHER, SELFPAY ==
[2020-07-04] MEDS: COVID-19 VACC #1, MRNA(MOD) 100 MCG/0.5 ML VIAL IM (08:48)
== END ==
PROVIDERS: Family Provider Family Medicine; PCP Family Medicine; Visit Provider Internal Medicine
DX: Z23 Encounter for immunization (principal)
CPT/HCPCS: 0011A; 91301

== ENCOUNTER → 2020-08-01 08:22 | Outpatient (CLI) | payer MEDICARE, OTHER, SELFPAY ==
[2020-08-01] MEDS: COVID-19 VACC #2, MRNA(MOD) 100 MCG/0.5 ML VIAL IM (08:30)
== END ==
PROVIDERS: Family Provider Family Medicine; PCP Family Medicine; Visit Provider Internal Medicine
DX: Z23 Encounter for immunization (principal)
CPT/HCPCS: 0012A; 91301

== ENCOUNTER → 2022-02-03 08:57 | Outpatient (CLI) | payer MEDICARE, OTHER, SELFPAY ==
--- NOTE | 2022-02-03 09:06 | DI.CT.S_ITS ---
PROCEDURE: CT SINUS SCREEN WO CON INDICATIONS: Chronic maxillary sinusitis TECHNIQUE: Noncontrast 3.0 mm axial images acquired from the frontal sinuses to the mid-sella, with coronal and sagittal reformats. For radiation dose reduction, the following was used: automated exposure control, adjustment of mA and/or kV according to patient size. COMPARISON: [facility], CT, SINUS SCREEN WO CONTRAST, 04/27/2016, 14:13. [facility], CT, SINUS SCREEN, 08/01/2007, 8:37. [facility], MR, MR HEAD/BRAIN WO/W CON, 11/26/2019, 10:14. FINDINGS: Image quality: Excellent. Maxillary Sinuses: No bony remodeling or destruction. There is a mucous retention cyst seen within the inferior left maxillary sinus. Ethmoid Air Cells: No bony remodeling or destruction. Sinuses are clear. Sphenoid Sinuses: No bony remodeling or destruction. Sinuses are clear. Frontal Sinuses: No bony remodeling or destruction. Mild mucosal thickening is seen within the inferomedial right frontal sinus. Ostiomeatal Complexes: Ostiomeatal complexes are patent, yet they are constitutionally narrowed, with bilateral Shukri cells. Miscellaneous: Visualized intra-orbital contents are normal. No shay bullosa or paradoxical turbinate curvature. No significant nasal septal deviation. Relatively prominent right temporomandibular joint degenerative change is seen, as on series 5, image 18. IMPRESSION: No significant active paranasal sinus disease is seen, with a small amount of mucosal thickening seen within the inferior medial right frontal sinus. Within the left maxillary sinus, there is a mucous retention cyst again seen. Constitutionally narrowed (yet patent) ostiomeatal complexes. Note is made of focal relatively prominent right temporomandibular joint degenerative change. Dictated by: Jassi Villatoro M.D. on 02/03/2022 at 8:28 Approved by: Jassi Villatoro M.D. on 02/03/2022 at 8:30
== END ==
PROVIDERS: Family Provider Family Medicine; PCP Family Medicine; Referring Provider Family Medicine; Visit Provider Family Medicine
DX: J32.0 Chronic maxillary sinusitis (principal); J34.1 Cyst and mucocele of nose and nasal sinus
CPT/HCPCS: 70486

== ENCOUNTER → 2022-06-17 16:11 | Outpatient (CLI) | payer MEDICARE, OTHER, SELFPAY ==
[2022-06-17 18:14] LABS: COVID19 -Nasal RAPID Negative (Negative)
== END ==
PROVIDERS: Family Provider Family Medicine; PCP Family Medicine; Visit Provider Surgery
DX: Z01.812 Encounter for preprocedural laboratory examination (principal); Z20.822 Contact with and (suspected) exposure to COVID-19
CPT/HCPCS: 87635; C9803

== ENCOUNTER 2022-06-18 06:43 | Day surgery (SDC) | payer MEDICARE, OTHER, SELFPAY ==
--- NOTE | 2022-06-18 | PATH_ITS ---
[facility] Accession Number: [id number] No. of containers..03 Tissue . 01 Material submitted: . PART A: rectum - RECTAL POLYP PART B: cecum - CECAL POLYP PART C: colon - TRANSVERSE COLON POLYP . 01 Diagnosis: A. Rectum, Polyp, Biopsy: Hyperplastic polyp. . B. Cecum, Polyp, Biopsy: Tubular adenoma. . C. Transverse Colon, Polyp, Biopsy: Tubular adenoma. [facility] 06/21/2022 1012 Local . 01 Electronically signed: . Jeny Dean MD, Pathologist NPI- [id number] . 01 Gross description: . Part A: RECTAL POLYP: Received in formalin is 1 fragment(s) of tilley, soft tissue measuring 0.5 x 0.3 x 0.2 cm submitted entirely in 1 cassette(s) Part B: CECAL POLYP: Received in formalin are 3 fragment(s) of tilley, soft tissue measuring 1.2 x 0.3 x 0.1 cm to 0.1 x 0.1 x 0.1 cm submitted entirely in 1 cassette(s) Part C: TRANSVERSE COLON POLYP: Received in formalin are 2 fragment(s) of tilley, soft tissue measuring 0.3 x 0.2 x 0.1 cm to 0.2 x 0.2 x 0.1 cm submitted entirely in 1 cassette(s) /CPE 06/19/2022 0523 Local . 01 Pathologist provided ICD-10: D12.0, D12.3 . 01 CPT . 400912, 260503, 381567 Specimen Comment: A courtesy copy of this report has been sent to [facility] Performed at: 01 [facility] [address] [place] [address] [address], [place], [place] [id number] MD Lc Pool MD Phone: [phone]
[2022-06-18] MEDS: LACTATED RINGERS 1,000 ML 42 ML IV (07:17)
[2022-06-18 07:21] VITALS: BP 150/80; PULSE 88; RESP 18; TEMP 36.2; O2SAT 98; BMI 28.0
--- NOTE | 2022-06-18 07:46 | P.HP_ITS ---
History of Present Illness History of Present Illness Chief complaint: [facility] Narrative: Mr. Del Angel presents today for a screening colonoscopy. Last colonoscopy was done here at [facility] about 5 years ago by 1 of the olivia. He thinks he had 1 or 2 polyps but can not really remember exactly. Has no family history of colon cancer and has not had any concerning symptoms no bleeding or changes in bowel movements. He has had an open prostatectomy several years ago. Patient History Medical History (Updated 06/18/22 @ 07:48 by Riana Agarwal MD) BPH (benign prostatic hyperplasia) CAD (coronary artery disease) Urine retention Surgical History H/O prostatectomy Hx of heart artery stent Family & Social History Social History: household members spouse Tobacco & Substance use: Smoking Status Never smoker alcohol intake frequency 0-2 drinks per day Substance Use Type does not use Meds Home Medications and Allergies Home Medications Medication Instructions Recorded Confirmed Type aspirin 81 mg tablet,delayed 1 tab PO QPM ##0 03/09/17 06/18/22 History release Vision Formula 50+ 1 tab PO QPM 04/06/18 06/18/22 History atorvastatin 40 mg tablet 1 tab PO DAILY 04/06/18 06/18/22 History magnesium 250 mg tablet 250 mg PO DAILY 04/06/18 06/18/22 History multivitamin 1 tab PO DAILY 04/06/18 06/18/22 History pantoprazole 40 mg tablet,delayed 1 tab PO DAILY 04/06/18 06/18/22 History release cholecalciferol (vitamin D3) 50 2,000 unit PO BID 01/27/21 06/18/22 History mcg (2,000 unit) capsule (Vitamin D3) coQ10 (ubiquinol) 100 mg capsule 100 mg PO .evening 01/27/21 06/18/22 History flaxseed oil 1,000 mg capsule 1,000 mg PO DAILY 01/27/21 06/18/22 History Allergies Allergy/AdvReac Type Severity Reaction Status Date / Time etodolac [From LODINE] Allergy Mild PER Verified 06/18/22 07:29 DREW. Penicillins [PENICILLINS] Allergy Mild RASH Verified 06/18/22 07:29 Sulfa (Sulfonamide Allergy Verified 06/18/22 07:29 Antibiotics) Exam Vital Signs (past 8 hours): - 06/18/22 07:21 Temperature 97.1 F L Pulse Rate 88 Respiratory Rate 18 Blood Pressure 150/80 H Pulse Oximetry 98 Oxygen Delivery Method Room Air Oxygen Delivery Method Room Air Const General: cooperative, healthy appearing and comfortable HENMT Head: normal to inspection Resp Effort & Inspection: normal respiratory effort and able to speak in complete sentences Cardio Pulses: radial pulses present GI Palpation: soft and No tender Assessment & Plan Assessment and plan (1) Colon cancer screening: Status: Acute Assessment & Plan narrative: I have discussed the risks benefits and alternatives with Mr. Posada of a screening colonoscopy. He understands the risk includes but is not limited to perforation of the colon and an incomplete examination. He would still like to proceed. Time Spent With Patient Critical Care time: I spent a total of [] minutes of critical care time on this patient's care today; this time is exclusive of procedural time.
[2022-06-18 08:46] VITALS: BP 100/56; PULSE 60; RESP 15; TEMP 36.5; O2SAT 96
[2022-06-18 08:54] VITALS: BP 107/73; PULSE 71; RESP 15; O2SAT 95
--- NOTE | 2022-06-18 08:57 | PM.OP.COLON ---
Procedure & Clinicians Study performed: Colonoscopy and biopsy Same procedure as scheduled: Yes Indications: Screening, history of polyps Surgeon: Riana Agarwal Procedure Notes Procedure in detail: Patient was taken to the endoscopy suite and placed in a left lateral decubitus position. A time-out was performed. Conscious sedation was performed by Dr. Coughlin anesthesiologist. A digital rectal exam was performed there were no masses or strictures. The colonoscope was introduced into the anal canal and advanced. At the very beginning, an approximately 0.8-0.9 cm sized a rectal polyp was seen and biopsied with a hot snare. The scope was then advanced through to the cecum. A photograph of the cecum was obtained. There was 1 polyp right near the appendiceal orifice that was biopsied with a hot snare. Upon withdrawal there was a very small additional polyp in the cecum which was biopsied with the forceps. Withdrawal time in total was 23 minutes an additional transverse colon polyp was biopsied with the forceps during the withdrawal. There were scattered diverticula throughout the sigmoid colon. Patient tolerated the procedure well and went in good condition to the postoperative care unit. There were a total of 4 polyps biopsied. Findings: divertiulosis and polyp(s) (1. Rectal polyp 2. Cecal polyps x2 3. Transverse colon polyp ) Post-procedure Plan for aftercare: Follow-up will be between 5 and 10 years depending on pathology of the polyps
[2022-06-18 08:58] VITALS: BP 115/74; PULSE 67; RESP 18; TEMP 36.4; O2SAT 99
[2022-06-18 09:03] VITALS: BP 119/71; PULSE 60; RESP 18; TEMP 36.4; O2SAT 99
[2022-06-18 09:17] VITALS: BP 121/72; PULSE 60; RESP 16; TEMP 36.3; O2SAT 98
== END 2022-06-18 09:30 | disposition home or self-care (01) ==
PROVIDERS: Family Provider Family Medicine; PCP Family Medicine; Referring Provider Surgery; Visit Provider Surgery
PROC: 0DJD8ZZ Inspection of Lower Intestinal Tract, Via Natural or Artificial Opening Endoscopic (ICD-10-PCS; CPT 45378; principal; 2022-06-18 07:45)
DX: Z12.11 Encounter for screening for malignant neoplasm of colon (principal); K57.30 Diverticulosis of large intestine without perforation or abscess without bleeding; K62.1 Rectal polyp; D12.0 Benign neoplasm of cecum; D12.3 Benign neoplasm of transverse colon
CPT/HCPCS: 45385; 45380; J2704

== ENCOUNTER → 2023-11-11 09:18 | Outpatient (CLI) | payer MEDICARE, OTHER, SELFPAY ==
--- NOTE | 2023-11-11 09:19 | DI.US.S_ITS ---
PROCEDURE: US SCROTUM INDICATIONS: R Scrotal Mass TECHNIQUE: Real-time scanning was performed of the scrotum and testicles, with image documentation. Color and pulse Doppler interrogation was performed of both testicles. COMPARISON: None. FINDINGS: Right: Testicle is normal in size at 4.7 x 3.5 x 2.6 cm, and homogenous in echotexture. Suspected tubular ectasia of the rete testes. Epididymis is normal in overall size and morphology, with a spermatocele at the head measuring 3.2 x 3.6 x 2.3 cm. No hydrocele or varicoceles. Overlying scrotal skin is normal in thickness. Left: Testicle is normal in size at 4.8 x 3.1 x 2.3 cm, and homogeneous in echotexture. Epididymis is normal in overall size and morphology. No hydrocele or varicoceles. Overlying scrotal skin is normal in thickness. Doppler: Color and pulse Doppler demonstrate normal and symmetric arterial flow in both testicles. IMPRESSION: Spermatocele in the epididymal head measuring 3.2 x 3.6 x 2.3 cm. 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 Dictated by: Steven Acuña M.D. on 11/11/2023 at 10:43 Approved by: Steven Acuña M.D. on 11/11/2023 at 10:46
== END ==
LOC: US 09:18
PROVIDERS: Family Provider Family Medicine; PCP Family Medicine; Referring Provider Specialist; Visit Provider Specialist
DX: N43.40 Spermatocele of epididymis, unspecified (principal); N50.89 Other specified disorders of the male genital organs
CPT/HCPCS: 76870

== ENCOUNTER 2024-06-19 07:45 | Day surgery (SDC) | payer MEDICARE, OTHER, SELFPAY ==
[2024-06-13 14:05] VITALS: BMI 26.7
[2024-06-19] VITALS (7 sets, daily range): BP systolic 101–148; BP diastolic 62–89; PULSE 57–77; RESP 11–21; TEMP 35.9–36.4; O2SAT 6–99; BMI 26.1
--- NOTE | 2024-06-19 | PATH_ITS ---
[facility] Accession Number: [id number] No. of containers..01 Tissue . 01 Material submitted: . epididymis - RIGHT SPERMATOCELE . 01 Diagnosis: RIGHT SPERMATOCELE, EXCISION: Histologic features consistent with spermatocele. Negative for atypia or malignancy. . . . . MRV 06/21/2024 1535 Local . 01 Electronically signed: . Kelly Allan MD, Pathologist NPI- [id number] . 01 Gross description: . Received in formalin with two patient identifiers and right spermatocele, is a thin-walled translucent cystic structure, 3.2 x 2.6 x 2.2 cm. The external surface is inked blue, and sectioning reveals a unilocular cystic structure filled with clear serous fluid. The mcgill are less than 0.1 cm thick, smooth, with no excrescence identified. The specimen is submitted entirely in A1-A2. ([id number]) /MRV 06/20/2024 1742 Local . 01 Pathologist provided ICD-10: N43.40 . 01 CPT . 620760 Specimen Comment: A courtesy copy of this report has been sent to [phone] Performed at: [address] [facility], [place], [place] [id number] MD Lc Pool MD Phone: [phone]
[2024-06-19] MEDS: FAMOTIDINE 20 MG/2 ML VIAL IV (08:33)
[2024-06-19] MEDS: ACETAMINOPHEN 325 MG TABLET 975 MG PO (08:33)
[2024-06-19] MEDS: LACTATED RINGERS 1,000 ML 42 ML IV (08:34)
--- NOTE | 2024-06-19 08:40 | PM.PREOP ---
Pre-operative Note COVID-19 COVID-19 status: Not tested Interval Note History & Physical reviewed/Exam performed by Physician: Yes Changes to H&P: No
[2024-06-19] MEDS: CIPROFLOXACIN 400 MG/200 ML PIGGYBACK 200 MG IV (09:15)
--- NOTE | 2024-06-19 09:15 | SUR.OPER ---
Supine on padded OR bed, head on pillow, arms secured on padded arm boards at <90 degrees abduction, legs uncrossed, safety belt at thigh, tape over blanket over lower legs.
[2024-06-19] MEDS: BUPIVACAINE 0.25% (PF) VIAL 30 ML INJ (10:07)
--- NOTE | 2024-06-19 10:13 | P.OP_ITS ---
Procedure & Clinicians Procedure: Right spermatocelectomy Same procedure as scheduled: Yes Indications: This 79-year-old gentleman presented with complaints of right hemiscrotal enlargement. He underwent ultrasound which revealed the presence of a spermatocele. The patient finds this uncomfortable and intermittently painful and presents wishing to have it removed. Surgeon: Davide Allred Click Yes if Unassisted: Yes Anesthesia Type: General Operative Notes Findings: Circumcised penis, normal meatus, normal penis, normal left hemiscrotum, normal left testis and cord. The right hemiscrotum appears enlarged. There is palpably findings consistent with the globus major spermatocele. The testes is palpably normal. At procedure a globus major spermatocele non complicated or septated is noted. Clear to milky colored fluid is noted within the avascular sac. This comes down to a single point of attachment to the epididymis. In his removed in its entirety. There were no other abnormalities within the dartos scrotum tunica vaginalis or testes. Closure Type: primary Specimen(s): other (Right spermatocele) Estimated Blood Loss (mL): 5 Blood products transfused: none Procedure in detail: Procedure in detail: After informed consent was obtained, the patient was identified brought to the operating room where he was placed in a supine position on the table. Once there anesthesia was induced and maintained. His hearing an adequate level of anesthesia of the patient was shaved, prepped, draped in his sterile fashion for right hemiscrotal procedure. After ensuring an adequate level of anesthesia, time-out, administration of antibiotics, prepping and draping a transverse right hemiscrotal incision was made and carried down through the layers of the dartos. Tunica vaginalis was entered and the testes and spermatocele were delivered. The investing fascial layers were removed from the spermatocele taking it down to the avascular sac. The dissection was then carried down to the attachment to the epididymis. This was done with blunt sharp and electrocautery dissection. With the neck defined a 2- 0 Vicryl was used to ligate the neck toward the epididymis. And then a 2nd ligation toward the sac. The neck in between was then divided in the spermatocele was delivered. A cord block was then performed with 0.25% plain Marcaine. The tunica vaginalis was then reapproximated with a running 3-0 chromic gut suture. The testes was then returned to the scrotum and the dartos reapproximated with a running 4-0 Vicryl. The skin edges were reapproximated with interrupted vertical mattress of 2-0 chromic. The skin was infiltrated with the same 0.25% plain Marcaine. Bacitracin Telfa fluffs and scrotal support were applied. The patient was awakened having tolerated the procedure well. He was transferred to the postanesthesia care unit for recovery there were no complications. The spermatocele sac was forwarded to pathology for pathologic examination. Complications: none Post-operative Condition: stable Disposition: PACU Plan for aftercare: After recovered the patient will return to my office in approximately 10-14 days.
== END 2024-06-19 10:53 | disposition home or self-care (01) ==
PROVIDERS: Family Provider Family Medicine; PCP Family Medicine; Referring Provider Urology; Visit Provider Urology
PROC: (CPT 54840; principal; 2024-06-19 09:15)
DX: N43.41 Spermatocele of epididymis, single (principal); N40.0 Benign prostatic hyperplasia without lower urinary tract symptoms; I25.10 Atherosclerotic heart disease of native coronary artery without angina pectoris; I10 Essential (primary) hypertension; K21.9 Gastro-esophageal reflux disease without esophagitis; Z95.5 Presence of coronary angioplasty implant and graft
CPT/HCPCS: 54840; J0744; J1100; J2405; J2704; J3010

== ENCOUNTER 2024-07-01 10:08 | Emergency (ER) | payer MEDICARE, OTHER, SELFPAY ==
[2024-07-01 10:22] VITALS: BP 165/84; PULSE 99; RESP 16; TEMP 36.9; O2SAT 97; BMI 27.1
--- NOTE | 2024-07-01 11:10 | ED.RECABL ---
HPI - Recheck/Abnormal Lab/Rx <Rosaura Sims PA-C - Last Filed: 07/01/24 11:44> General Chief Complaint: Recheck/Abnormal Lab/Rx Stated Complaint: surg1/14, pulled stitches out t-1, bleeding Time Seen by Provider: 07/01/24 11:06 History of Present Illness HPI narrative: Mr. Posada is a pleasant 79-year-old male with a past medical history of elective right spermatocele removal 06/19/[address] Allred who presents to the emergency department for wound dehiscence/accidentally pulling out a suture around 3:00 a.m. this morning while sleeping. Operative note review reveals patient had right spermatocele removed June 19 without complication and 2-0 chromic sutures were used to reapproximate the skin edges. Patient followed up with Dr. Allred 2 days ago and was having no complications. He presents today with his because he accidentally pulled a stitch out causing bleeding of his surgical wound on the lateral most edge. Patient states wound is otherwise healing well, no pain, no fevers, no drainage. No dysuria. There is some erythema around the patient's wound but he states that this is not new and he believes is just related to the healing bruises from surgery. He has been wearing a jock strap for support as directed. He attempted to close the wound at home with Steri-Strips both having a difficult time and irritating the skin. No other complaints today. Related Data Home Medications Medication Instructions Recorded Confirmed aspirin 81 mg tablet,delayed 1 tab PO QPM ##0 03/09/17 06/19/24 release Vision Formula 50+ 1 tab PO QPM 04/06/18 06/11/24 atorvastatin 40 mg tablet 1 tab PO DAILY 04/06/18 06/19/24 magnesium 250 mg tablet 250 mg PO DAILY 04/06/18 06/19/24 multivitamin 1 tab PO DAILY 04/06/18 06/19/24 pantoprazole 40 mg tablet,delayed 1 tab PO DAILY 04/06/18 06/19/24 release cholecalciferol (vitamin D3) 50 2,000 unit PO BID 01/27/21 06/19/24 mcg (2,000 unit) capsule (Vitamin D3) coQ10 (ubiquinol) 100 mg capsule 100 mg PO .evening 01/27/21 06/19/24 amlodipine 5 mg tablet 5 mg PO DAILY 11/08/23 06/19/24 bilberry fruit 1,000 mg capsule 1 g PO DAILY 11/08/23 06/19/24 Previous Rx's Medication Instructions Recorded cephalexin 500 mg capsule 500 mg PO QID 5 days #20 caps 07/01/24 Allergies Allergy/AdvReac Type Severity Reaction Status Date / Time etodolac [From LODINE] Allergy Mild PER Verified 06/19/24 08:21 DREW. Penicillins [PENICILLINS] Allergy Mild RASH Verified 06/19/24 08:21 clindamycin Allergy Unknown Verified 06/19/24 08:21 Sulfa (Sulfonamide Allergy Verified 06/19/24 08:21 Antibiotics) Review of Systems <Rosaura Sims PA-C - Last Filed: 07/01/24 11:44> Review of Systems ROS Unobtainable: All systems reviewed & are unremarkable except as noted in HPI and below Patient History <Rosaura Sims PA-C - Last Filed: 07/01/24 11:44> Medical History History of COVID-19 (12/27/21) Spermatocele of epididymis CAD (coronary artery disease) Urine retention BPH (benign prostatic hyperplasia) Surgical History History of tooth extraction (11/2021) Hx of bilateral cataract extraction (2013) Hx of eye surgery (10/31/13) History of turbinectomy (12/2016) History of arthroscopy of left shoulder (10/2014) H/O prostatectomy (06/2018) Hx of heart artery stent (03/2017) Social History household members: spouse Smoking Status: Never smoker alcohol intake: current Smoking Status: Never smoker alcohol intake frequency: 0-2 drinks per day Exam <Rosaura Sims PA-C - Last Filed: 07/01/24 11:44> Narrative Exam Narrative: GENERAL: 79 year old patient appears stated age. Well-developed patient, in no acute distress. HEAD: Atraumatic. Normocephalic. RESPIRATORY: ?Nonlabored respirations. ?Speaking in clear, full sentences. GASTROINTESTINAL: Abdomen soft, non-tender, nondistended. Patient gave verbal consent for exam. On the right scrotum there is proximally 3 cm linear surgical incision that is healing well. There are no signs of dehiscence or bleeding at this time. There is a small area of suture sticking out on the lateral edge of the wound. Surrounding erythema, no tenderness to palpation or induration. Normal circumcised penis. NEURO: AOx3. ?Clear speech. ?Moves all 4 extremities appropriately. Initial Vital Signs Initial Vital Signs: Vital Signs Temperature 98.4 F 07/01/24 10:22 Pulse Rate 99 H 07/01/24 10:22 Respiratory Rate 16 07/01/24 10:22 Blood Pressure 165/84 H 07/01/24 10:22 Pulse Oximetry 97 07/01/24 10:22 Oxygen Delivery Method Room Air 07/01/24 10:22 <Bridgett Glynn MD - Last Filed: 07/01/24 13:15> Initial Vital Signs Initial Vital Signs: Vital Signs Temperature 98.4 F 07/01/24 10:22 Pulse Rate 99 H 07/01/24 10:22 Respiratory Rate 16 07/01/24 10:22 Blood Pressure 165/84 H 07/01/24 10:22 Pulse Oximetry 97 07/01/24 10:22 Oxygen Delivery Method Room Air 07/01/24 10:22 Course <Rosaura Sims PA-C - Last Filed: 07/01/24 11:44> Orders Ordered: Discontinued Medications Bacitracin (Bacitracin Oint 0.9 Gm Pckt) 1 applic TOP NOW ONE Stop: 07/01/24 11:24 Last Admin: 07/01/24 11:38 Dose: 1 applic Documented By: SB Vital Signs Vital signs: Vital Signs - 8 hr 07/01/24 10:22 Temperature 98.4 F Pulse Rate 99 H Respiratory Rate 16 Blood Pressure 165/84 H Pulse Oximetry 97 Oxygen Delivery Method Room Air <Bridgett Glynn MD - Last Filed: 07/01/24 13:15> Orders Ordered: Discontinued Medications Bacitracin (Bacitracin Oint 0.9 Gm Pckt) 1 applic TOP NOW ONE Stop: 07/01/24 11:24 Last Admin: 07/01/24 11:38 Dose: 1 applic Documented By: BETHANY Vital Signs Vital signs: Vital Signs - 8 hr 07/01/24 10:22 Temperature 98.4 F Pulse Rate 99 H Respiratory Rate 16 Blood Pressure 165/84 H Pulse Oximetry 97 Oxygen Delivery Method Room Air MDM - Recheck/Abnormal Lab/Rx <Rosaura Sims PA-C - Last Filed: 07/01/24 11:44> Medical Records Attestation: I reviewed the patient's medical records. [facility] Narrative Medical decision making narrative: 79-year-old male with a past medical history of elective right spermatocele removal 06/19/[address] Allred who presents to the emergency department for wound dehiscence/accidentally pulling out a suture around 3:00 a.m. this morning while sleeping. Differential diagnosis includes but is not limited to wound dehiscence, wound infection, patient concerned for wound recheck, etc. On exam patient is in no acute distress, nontoxic appearing, afebrile. His blood pressure and heart rate are slightly elevated however he is quite anxious about his scrotal surgical wound. He is having no pain. He is concerned that he removed the suture accidentally causing wound dehiscence. On exam patient has no wound dehiscence, no bleeding, no drainage. He does have minimal amount of erythema surrounding surgical site wound however he states that this is not new and he believes is related to the healing process in addition he was applying Steri-Strips and removing them at home earlier today so he believes it is irritated. Out of an abundance of caution with the patient's consent we took a picture of the wound site on his phone and I did prescribe him a course of antibiotics to start taking only if the redness worsens or any other signs of infection begin. At this time we want him to just continue applying bacitracin and sterile dressing to the wound and follow up with his surgeon. Bacitracin and nonadherent dressing applied in the ED. Discussed signs and symptoms to return to the ED for with the patient and his , they verbalized understanding, or happy with the plan. He is stable for discharge home. Discharge Plan Departure Patient Disposition: Home Clinical Impression: Encounter for post surgical wound check Instructions: DI for Wound Dehiscence Activity Restrictions/Additional Instructions: Dear Mr. Posada, Thank you for coming to the emergency department today. Your exam today reveals no sign of the surgical wound coming apart, it is healing well. You do have some redness around the wound which we took a picture of on your phone. If this redness spreads, please start taking the course of antibiotics that I prescribed for you and complete the full course. I would like you to follow up with Dr. Allred for wound recheck as soon as possible. Please continue applying bacitracin directly to the wound and using clean wound dressings. Return to the emergency department immediately if you develop increased redness of the wound, fevers, vomiting, pus draining from the wound, or any other concerns. Please follow up with your primary care doctor within the next 2-3 days for ER follow-up. (If you do not have a PCP you can call [phone]. ?to schedule an appointment with an [facility] Primary Care Provider) IF YOU DEVELOP ANY NEW OR WORSENING SYMPTOMS, RETURN TO THE ER! Please read the attached instructions, they highlight more specific treatments and interventions for you at home. Thank you for letting me participate in your care, Rosaura Sims PA-C Prescriptions: New cephalexin 500 mg capsule 500 mg PO QID 5 Days Qty: 20 0RF No Action aspirin 81 MG tablet,delayed release (DR/EC) 1 tab PO QPM Qty: 0 multivitamin Tablet 1 tab PO DAILY magnesium 250 mg Tablet 250 mg PO DAILY atorvastatin 40 mg tablet 1 tab PO DAILY Patient Comments: TK 1 T PO D FOR CHOLESTEROL pantoprazole 40 mg tablet,delayed release (DR/EC) 1 tab PO DAILY Vision Formula 50+ 1 tab PO QPM cholecalciferol (vitamin D3) [Vitamin D3] 50 mcg (2,000 unit) capsule 2,000 unit PO BID coQ10 (ubiquinol) 100 mg capsule 100 mg PO .evening Patient Comments: UNSURE OF 100MG bilberry fruit 1,000 mg capsule 1 g PO DAILY amlodipine 5 mg tablet 5 mg PO DAILY Referrals: Scotty Caceres MD [Primary Care Provider] - Stand Alone Forms: Patient Portal/API/Survey ED Sign-out <Bridgett Glynn MD - Last Filed: 07/01/24 13:15> Cosign ED Attending Cosignature Attestation: I did not see this patient. I was available all times for consultation.
[2024-07-01] MEDS: BACITRACIN OINT 0.9 GM PCKT 1 APPLIC TOP (11:38)
== END 2024-07-01 11:44 | disposition home or self-care (01) ==
PROVIDERS: Emergency Provider Physician Assistant; Family Provider Family Medicine; PCP Family Medicine
DX: Z48.00 Encounter for change or removal of nonsurgical wound dressing (principal)
CPT/HCPCS: 99282

== ENCOUNTER → 2025-01-15 07:18 | Outpatient (CLI) | payer MEDICARE, OTHER, SELFPAY ==
[2025-01-15 08:15] LABS: Blood Urea Nitrogen 14 mg/dL (9-20); Calcium 9.4 mg/dL (8.4-10.2); Carbon Dioxide 28 mmol/L (22-32); Chloride 102 mmol/L (98-107); Estimated Glomerular Filt Rate > 60 mL/min (>60); Glucose 103 mg/dL (70-99); HEMOLYSIS < 15 (0-50); Potassium 4.1 mmol/L (3.4-5.1); Sodium 138 mmol/L (137-145)
[2025-01-15 08:21] LABS: Cholesterol 137 mg/dL (140-199); HDL Cholesterol 50 mg/dL (40-60); Triglycerides 125 mg/dL (35-150)
== END ==
PROVIDERS: Family Provider Family Medicine; PCP Family Medicine; Referring Provider Family Medicine; Visit Provider Internal Medicine Cardiovascular Disease
DX: I25.10 Atherosclerotic heart disease of native coronary artery without angina pectoris (principal); M54.50 Low back pain, unspecified
CPT/HCPCS: 36415; 80048; 80061